=== PATIENT | female | born 1950 | race Caucasian/White ===

== ENCOUNTER 2021-02-11 12:17 | Inpatient (IN) | payer MEDICARE, OTHER, SELFPAY ==
--- NOTE | ~2021-02-11 | CT_ITS ---
EXAMINATION: CT abdomen pelvis w con DATE: 02/11/2021 14:10 INDICATION: Jaundice. Ascites. TECHNIQUE: Computed tomography (CT) of the abdomen and pelvis was performed with 100 cc Omnipaque 350 intravenous contrast. Automated exposure control and iterative reconstruction technique were employe d. Exam dose: 1379.95 mGy-cm total exam DLP. COMPARISON: 02/11/2021 right upper quadrant abdominal ultrasound examination is not currently availabl e FINDINGS: Cardiomegaly. Right atrial, right ventricular and coronary sinus leads are noted. No perica rdial or pleural effusion. The lung bases are clear of consolidation. Choledocholithiasis is noted at the distal common bile duct, with prominent intrahepatic and extrahep atic bile duct dilatation. There are multiple gallstones. There is gallbladder distention. No gallbla dder wall thickening or pericholecystic fluid or fat stranding is noted. No hepatic, splenic, pancreatic, adrenal or renal space-occupying mass lesion is detected. There is extensive calcification of the abdominal aorta and prominent calcification at the origin of the combined celiac and superior mesenteric artery, at the origins of the renal arteries. No abdomina l aortic aneurysm. No intraperitoneal or retroperitoneal or pelvic mass lesion or adenopathy or ascit es. There is a Arce catheter within the completely evacuated urinary bladder. No urinary tract calculus or hydroureteronephrosis. The uterus and adnexal areas are unremarkable. Normal appendix. There are numerous diverticula of the sigmoid colon; no CT evidence of diverticuliti s. No bowel obstruction, bowel wall thickening, pneumatosis or intraperitoneal free air is detected. Moderately prominent degenerative disc disease at L5-S1. Diffuse osteopenia. IMPRESSION: Choledocholithiasis with dilatation of the intrahepatic and extra hepatic bile ducts Cholelithiasis, distended gallbladder Diverticulosis of the colon; no CT evidence of diverticulitis Reviewed, dictated and finalized at [facility]. Reviewed, dictated and finalized at [facility].
--- NOTE | ~2021-02-11 | CT_ITS ---
EXAMINATION: CTA chest PE protocol DATE: 02/14/2021 13:24 INDICATION: Sepsis. Elevated d-dimer. TECHNIQUE: Computed tomography (CT) pulmonary angiogram of the chest was performed with 100 mL Omnipa que-350 intravenous contrast. Additional 3D reconstructions utilizing coronal maximum intensity proje ction (MIP) were performed. Automated exposure control and iterative reconstruction technique were em ployed. The dose-length product was 657.78 mGy-cm. COMPARISON: CT abdomen and pelvis dated 02/11/2021 FINDINGS: Excellent contrast opacification of the pulmonary arteries. There is moderate streak artifact from de nse contrast in the superior vena cava and right atrium. Moderate scattered respiratory motion artifa ct. Whether this decreases sensitivity in many of the subsegmental pulmonary arteries particularly at the lung bases. There is a small segmental region of decreased contrast enhancement along the caudal margin of a couple of the pulmonary arteries in the superior segment of the left lower lobe which ar e equivocal for pulmonary emboli versus volume averaging due to motion artifact. No other lesions moiz picious for pulmonary emboli identified. Mild dependent atelectasis in the bilateral lower lobes. Benjie cified left lower lobe nodule consistent with old granulomatous disease. No pneumonia, pulmonary pepe a, pleural effusion or pneumothorax. Cardiomegaly. Atherosclerotic coronary artery calcification. Thr ee lead pacemaker/AICD seen with lead tips at the right atrium, apex of the right ventricle and in a coronary vein overlying the anterior wall of the left ventricle having traversed the coronary sinus. No pericardial effusion. Mild right hilar and mediastinal lymphadenopathy which is likely reactive. T horacic aorta is normal in caliber with no dissection. There is enlargement of the central pulmonary arteries consistent with pulmonary arterial hypertension. Goiter with enlargement of the right thyroi d lobe. Peripherally calcified gallstones in the normal-appearing visualized portion of the gallbladd er. The common bile duct is dilated to 1.8 cm and there is intrahepatic biliary ductal dilation and/o r periportal edema in the liver. IMPRESSION: 1. Small filling defects versus volume averaging related to motion at a couple segmental pulmonary ar teries in the superior segment of the left lower lobe equivocal for pulmonary embolism. 2. Cardiomegaly and enlargement of the central pulmonary arteries consistent with pulmonary arterial hypertension. 3. Likely reactive mediastinal and right hilar lymphadenopathy. 4. Goiter. 5. Cholelithiasis with persistent intra and extra hepatic biliary ductal dilation which could be due to a previous noted gallstone at the distal common bile duct pain seen on earlier CT of the abdomen a nd pelvis. Reviewed, dictated and finalized at [facility]. IMPRESSION: 1. Small filling defects versus volume averaging related to motion at a couple segmental pulmonary arteries in the superior segment of the left lower lobe equ ivocal for pulmonary embolism. 2. Cardiomegaly and enlargement of the central pulmonary arteries consistent wi th pulmonary arterial hypertension. 3. Likely reactive mediastinal and right hilar lymphadenopathy. 4. Goiter. 5. Cholelithiasis with persistent intra and extra hepatic biliary ductal dilati on which could be due to a previous noted gallstone at the distal common bile d uct pain seen on earlier CT of the abdomen and pelvis.
--- NOTE | ~2021-02-11 | US_ITS ---
EXAMINATION: US right upper quadrant DATE: 02/11/2021 14:30 INDICATION: Jaundice and elevated liver function tests TECHNIQUE: Multiple grayscale and Doppler ultrasound images of the abdomen were obtained. COMPARISON: CT from today FINDINGS: The head, body, and tail of the pancreas are normal. There is intrahepatic biliary dilatati on. No surface nodularity. Normal hepatopetal flow in the main portal vein. The gallbladder is disten ded and contains multiple stones. There is mild wall thickening of the gallbladder. The dilated commo n bile duct measures 16 mm. There was no sonographic Molina sign. IMPRESSION: 1. Cholelithiasis. 2. Intrahepatic and extrahepatic biliary dilatation, consistent with choledocholithiasis identified o n earlier CT. Reviewed, dictated and finalized at [facility]. IMPRESSION: 1. Cholelithiasis. 2. Intrahepatic and extrahepatic biliary dilatation, consistent with choledocho lithiasis identified on earlier CT.
--- NOTE | ~2021-02-11 | US_ITS ---
EXAMINATION: US venous doppler LE EXAM DATE: 02/16/2021 09:39 INDICATION: Pulmonary embolism. TECHNIQUE: Multiple grayscale, color flow and Doppler images of the lower extremity deep venous syste ms bilaterally were obtained and reviewed. There is no prior study for comparison. FINDINGS: Right side: The right common femoral, femoral and profunda veins demonstrate normal color flow, respi ratory variation, augmentation and compressibility. Compressibility, color flow confirmed within the right popliteal, posterior tibial, peroneal, and greater saphenous veins. Left side: The left common femoral, femoral and profunda veins demonstrate normal color flow, respira tory variation, augmentation and compressibility. Compressibility, color flow confirmed within the l eft popliteal, posterior tibial, peroneal, and greater saphenous veins. IMPRESSION: No lower extremity deep venous thrombosis bilaterally. Reviewed, dictated and finalized at location [facility].
--- NOTE | ~2021-02-11 | XR_ITS ---
EXAMINATION: XR ERCP DATE: 02/15/2021 13:32 INDICATION: Choledocholithiasis. TECHNIQUE: 3 spot fluoroscopic images of the right upper quadrant were obtained during endoscopic ret rograde cholangiopancreatography (ERCP). Fluoroscopy exposure time was 136 seconds. COMPARISON: CT abdomen and pelvis 02/11/2021 FINDINGS: The endoscope is in the second portion of the duodenum. There is contrast opacification of the biliary tree. The common duct is dilated. There is a balloon in the common duct. IMPRESSION: 1. Dilated common duct. Please refer to the ERCP procedure note for additional details. Reviewed, dictated and finalized at [facility].
[2021-02-11 12:25] VITALS: BP 127/72; PULSE 77; RESP 26; TEMP 37.1; O2SAT 100
--- NOTE | 2021-02-11 13:21 | ED.GENADULT ---
HPI - General Adult General Chief complaint: Recheck/Abnormal Lab/Rx <Lois Ballesteros MD - Last Filed: 02/16/21 15:22> Stated complaint: ABN LABS <Lois Ballesteros MD - Last Filed: 02/16/21 15:22> Time Seen by Provider: 02/11/21 13:14 <Lois Ballesteros MD - Last Filed: 02/16/21 15:22> Source: family and EMS <Lois Ballesteros MD - Last Filed: 02/16/21 15:22> Mode of arrival: EMS <Lois Ballesteros MD - Last Filed: 02/16/21 15:22> Limitations: altered mental status <Lois Ballesteros MD - Last Filed: 02/16/21 15:22> History of Present Illness HPI narrative: 70-year-old female sent for sudden onset of jaundice and elevated LFTs. Per family 2 days ago she was not jaundiced and this is sudden onset. Patient does not have any complaints. According to the senior living she is altered mental status at this time, but states baseline. No abdominal pain, no fever. <Lois Ballesteros MD - Last Filed: 02/16/21 15:22> Onset (ago): day(s) (2) <Lois Ballesteros MD - Last Filed: 02/16/21 15:22> Related Data Home medications: Home Medications Medication Instructions Recorded Confirmed amlodipine 10 mg PO DAILY 02/11/21 02/12/21 atorvastatin 10 mg PO DAILY 02/11/21 02/12/21 carvedilol 25 mg PO BID 02/11/21 02/12/21 hydrochlorothiazide 25 mg PO DAILY 02/11/21 02/12/21 losartan 100 mg PO DAILY 02/11/21 02/12/21 potassium chloride 10 meq PO DAILY 02/11/21 02/12/21 warfarin 2.5 mg PO 2XW 02/11/21 02/12/21 omega-3 fatty acids 1,000 mg PO BID 02/12/21 02/12/21 <Lois Ballesteros MD - Last Filed: 02/16/21 15:22> Allergies/adverse reactions: Allergies Allergy/AdvReac Type Severity Reaction Status Date / Time lisinopril Allergy Unknown Rash Verified 02/15/21 11:04 <Lois Ballesteros MD - Last Filed: 02/16/21 15:22> Review of Systems Review of Systems: CONSTITUTIONAL: no fever, no weight loss, increased confusion <Lois Ballesteros MD - Last Filed: 02/16/21 15:22> ROS unobtainable: Yes unobtainable due to mental status <Lois Ballesteros MD - Last Filed: 02/16/21 15:22> [facility] Past Medical History Medical History: Medical History (Updated 02/16/21 @ 09:30 by LUC Sidhu) Atrial fibrillation CVA (cerebral vascular accident) (02/05/21) Dense left MCA stroke with CT suggestive of left M1 occlusion transferred to [facility] underwent mechanical thrombectomy Hyperlipidemia Hypertension Non-ischemic cardiomyopathy Tobacco abuse <Lois Ballesteros MD - Last Filed: 02/16/21 15:22> Surgical History Surgical History: Surgical History (Updated 02/15/21 @ 20:58 by Duglas Bruno MD) History of section ICD (implantable cardioverter-defibrillator) battery depletion <Lois Ballesteros MD - Last Filed: 02/16/21 15:22> Family History Family History: Family History Grandparent Cerebrovascular accident <Lois Ballesteros MD - Last Filed: 02/16/21 15:22> Social History Social History: Social History Social History: She lives with her of 54 years. They have 3 children. She is a homemaker. She has smoked as much as a pack of cigarettes per day since she was a teenager but recently cut down to half a pack of cigarettes per day. She denies any significant alcohol use history. Patient lives in a two-story home with her . can provide caregiver services. There are 3 steps to enter. Bedroom and bathroom are on the 2nd floor. Smoking packs per day: 0.5 Smoking cigarettes per day: 10.0 Years smoked: 52 Smoking pack-years: 26.00 Smoking status: Current every day smoker Additional smoking assessment comments: Placed in rehab so has not been smoking there for past month Alcohol intake: never Substance use: never Substance use type: does not use Spiritual car
[2021-02-11 13:56] LABS: Lipase 115 U/L (23-300); Magnesium 2.5 mg/dL (1.6-2.3)
[2021-02-11 13:56] LABS: Basophils Percent Auto 0.2 % (0.2-1.2); Hematocrit 28.8 % (37.0-47.0); Hemoglobin 9.6 g/dL (12.0-15.0); Immature Granulocyte Absolute 0.23 K/mm3 (0.00-0.031); Immature Granulocyte Percent A 1.6 % (0-0.5); Lymphocytes Absolute Auto 0.38 K/mm3 (0.9-3.2); Lymphocytes Percent Auto 2.7 % (18.3-44.2); Mean Corpuscular HGB Conc 33.3 g/dl (32-36); Mean Corpuscular Hemoglobin 32.8 pg (26-34); Mean Corpuscular Volume 98.3 fl (80-100); Monocytes Absolute Auto 0.9 K/mm3 (0.1-0.6); Monocytes Percent Auto 6.4 % (2.6-8.5); Neutrophils Absolute Auto 12.6 K/mm3 (1.3-6.7); Neutrophils Percent Auto 89.1 % (45.5-73.1); Nucleated Red Blood Cells Perc 0.2 % (0.0-0.2); Red Blood Count 2.93 M/mm3 (4.2-5.4); White Blood Count 14.1 K/mm3 (4.5-10.0)
[2021-02-11 13:59] LABS: INR 1.3; Prothrombin Time 15.7 Seconds (11.1-14.7)
[2021-02-11 14:00] LABS: Partial Thromboplastin Time 25.8 SECONDS (22.3-36.8)
[2021-02-11 14:09] LABS: Troponin I 0.017 ng/mL (0.000-0.034)
[2021-02-11 15:18] LABS: Platelet Clumps Present; Platelet Estimate Adequate (Adequate)
[2021-02-11 17:05] VITALS: BP 124/69; PULSE 75; RESP 22; TEMP 37; O2SAT 100
[2021-02-11] MEDS: AMPICILLIN SULB 3 GM/NS 100 ML 3 GM/100 ML VIAL IVPB (17:05)
[2021-02-11 19:15] VITALS: BP 115/64; PULSE 72; RESP 16; O2SAT 92
[2021-02-11 20:01] VITALS: BP 119/65; PULSE 75; RESP 19; O2SAT 100
[2021-02-11 21:29] VITALS: BP 116/84; PULSE 75; RESP 21; O2SAT 100
[2021-02-12] VITALS (10 sets, daily range): BP systolic 118–148; BP diastolic 63–86; PULSE 75–77; RESP 17–20; TEMP 35.9–36.1; O2SAT 96–100; BMI 34.7
[2021-02-12] MEDS: AMPICILLIN SULB 3 GM/NS 100 ML 3 GM/100 ML VIAL IVPB ×5 (00:12→23:33)
[2021-02-12] MEDS: SODIUM CHLORIDE 0.9% IV 1,000 ML 999 ML IV CONT (01:29)
[2021-02-12 01:46] LABS: Lactic Acid Reflex 0.8 mmol/L (0.7-2.1)
[2021-02-12 02:24] LABS: Basophils Percent Auto 0.2 % (0.2-1.2); Eosinophils Absolute Auto 0.1 K/mm3 (0-0.3); Eosinophils Percent Auto 0.7 % (0-4.4); Hematocrit 26.8 % (37.0-47.0); Hemoglobin 8.9 g/dL (12.0-15.0); Immature Granulocyte Absolute 0.09 K/mm3 (0.00-0.031); Immature Granulocyte Percent A 0.9 % (0-0.5); Lymphocytes Absolute Auto 0.65 K/mm3 (0.9-3.2); Lymphocytes Percent Auto 6.4 % (18.3-44.2); Mean Corpuscular HGB Conc 33.2 g/dl (32-36); Mean Corpuscular Hemoglobin 32.7 pg (26-34); Mean Corpuscular Volume 98.5 fl (80-100); Mean Platelet Volume 10.9 fl (7.4-10.4); Monocytes Absolute Auto 1.2 K/mm3 (0.1-0.6); Monocytes Percent Auto 11.8 % (2.6-8.5); Neutrophils Absolute Auto 8.1 K/mm3 (1.3-6.7); Nucleated Red Blood Cells Perc 0.3 % (0.0-0.2); Platelet Count Result 155 k/mm3 (150-375); Red Blood Count 2.72 M/mm3 (4.2-5.4); Red Cell Distribution Width 13.1 % (11.5-14.5); White Blood Count 10.1 K/mm3 (4.5-10.0)
[2021-02-12 02:39] LABS: Alanine Aminotransferase 281 U/L (4-35); Albumin Level 3.6 g/dL (3.5-5.1); Alkaline Phosphatase 262 U/L (38-126); Anion Gap 8 mmol/L (8-16); Aspartate Amino Transferase 155 U/L (14-36); Bilirubin,Total 6.6 mg/dL (0.2-1.3); Blood Urea Nitrogen 31 mg/dL (7-17); Calcium 8.5 mg/dL (8.4-10.2); Carbon Dioxide 23 mmol/L (22-30); Chloride 107 mmol/L (98-107); Estimated CRCL calculation 44 ml/min; Estimated Glomerular Filt Rate 40; Glucose 173 mg/dL (65-110); Lipase 98 U/L (23-300); Potassium 3.3 mmol/L (3.4-5.0); Sodium 138 mmol/L (137-145)
[2021-02-12] MEDS: SODIUM CHLORIDE 0.9% IV 1,000 ML 150 ML IV CONT (04:54)
--- NOTE | 2021-02-12 05:53 | PM.IMHP ---
H&P: HPI History of Present Illness Date/Time: 02/12/21 05:53 Chief Complaint: Jaundice and confusion Narrative: 70-year-old female with past medical history of recent CVA status post thrombectomy, hypertension, hyperlipidemia, nonischemic cardiomyopathy and atrial fibrillation who presented to the ER from acute inpatient rehab via EMS after her morning labs demonstrated elevated bilirubin, transaminases and leukocytosis. The acute rehab staff had no the patient was jaundice and seemed confused. Labs at acute rehab [place] [address], chronic stable anemia hemoglobin 9.2, sodium 135 potassium 3.8, CO2 20, BUN 31, creatinine 1.3 up from prior value of 0.8, bilirubin 6.5, AST 229 ALT 365 alk-phos 317. She was alert oriented to person but was unable to give me her last name. She could not name the town or the name the hospital. She was under the impression that she was going back to the rehab facility later today. Rib she was oriented to the month and year. She was unable to provide any true history regarding her recent CVA for past medical history. She seemed intermittently confused. She did have some expressive aphasia but also was providing inappropriate responses that were not due to word finding. She denies having any abdominal pain but seemed to have some mild guarding on exam. On exam patient was markedly jaundice. She denies any nausea or vomiting. She reports that she does not recall when she last had a bowel movement. She denies any difficulty urinating. However the patient had a Arce catheter present at the time of my evaluation. She told the nursing staff that she told me that she had the Arce catheter at the rehab facility but she told nursing staff that the with complete at this hospital. She denies having any fevers or chills. However it known that she had a temperature of a 102.9? around 8:00 a.m. on the 8 at acute inpatient rehab. The patient was noted to be wheezing on exam. The patient denies a history of COPD and denies any shortness of breath. She has nasal cannula in place but no documented history of hypoxia. She evidently had some increased work of breathing in the ER. At the time of my evaluation she did have some mild tachypnea during conversation but this resolved when she would pause. She does continue to smoke daily. She started smoking as a teenager and smoked about a pack of cigarettes per day. She denies any chest pain or palpitations. The patient has obvious right facial droop and expressive aphasia. She seems to have some difficulty with coordination of her rate hand. She states that she has not been walking since her stroke. The patient is a fair to poor historian. Review of Systems Review of Systems: 12 systems were reviewed with pertinent positives and negatives per HPI. Except as documented in the HPI, all other systems were reviewed and are negative., however limited as the patient had intermittent confusion. [facility] Past Medical History Medical History (Updated 02/12/21 @ 15:40 by LUC Sidhu) Atrial fibrillation CVA (cerebral vascular accident) (02/05/21) Dense left MCA stroke with CT suggestive of left M1 occlusion transferred to [facility] underwent mechanical thrombectomy Hyperlipidemia Hypertension Non-ischemic cardiomyopathy Tobacco abuse Surgical History Surgical History ICD (implantable cardioverter-defibrillator) battery depletion Family History Family History Grandparent Cerebrovascular accident Social History Social History (Updated 02/12/21 @ 08:09 by Laura Alas DO) Social History: She lives with her of 54 years. They have 3 children. She is a homemaker. She has smoked as much as a pack of cigarettes per day since she was a teenager but recently cut down to half a pack of cigarettes per day. She denie
--- NOTE | 2021-02-12 05:54 | ADMGEN ---
This patient, Brooklyn Morocho, was admitted to 2 Medical Room 258-01@ 05. Patient/family oriented to hospital policies and general routines including ID bracelet, bed and alarms, visiting hours, pain management, procedures, bathroom and other care routines, personal items, smoking policy, room service/diet, and visiting hours. Information on how to activate the Rapid Response Team has been discussed. Patient/Family are encouraged to report perceived risks to care and to ask questions if they do not understand what they are told or what they should do.
[2021-02-12] MEDS: SODIUM CHLORIDE 0.9% IV 1,000 ML 125 ML IV CONT ×2 (06:41→17:52)
[2021-02-12 07:39] LABS: Ammonia < 9 umol/L (9-30); INR 1.2; Prothrombin Time 15.4 Seconds (11.1-14.7)
[2021-02-12 07:40] LABS: Partial Thromboplastin Time 27.4 SECONDS (22.3-36.8)
[2021-02-12] MEDS: HEPARIN SODIUM 5,000 UNITS/ML VIAL 8500 UNITS IV PUSH (08:19)
[2021-02-12] MEDS: HEPARIN SOD/D5W 100 UNITS/ML 25,000 UNITS/250 ML BAG 15 UNITS IV CONT (08:20)
--- NOTE | 2021-02-12 09:00 | P.PNIM_ITS ---
Progress Note: A&P Assessment and Plan (1) Severe sepsis with acute organ dysfunction: Code(s): A41.9 - Sepsis, unspecified organism; R65.20 - Severe sepsis without septic shock Status: Acute Assessment and Plan: * patient met severe sepsis criteria on presentation with leukocytosis, fever of 102.9, acute kidney injury, tachypnea, metabolic encephalopathy, hyperbilirubinemia and transaminitis. * Source of infection: Choledocholithiasis with ascending cholangitis. * White blood cell count 14.1 upon admission down to 10.1 today * Lactic acid 0.8 * AST/ALT 155/281, alk-phos 262 * Right upper quadrant ultrasound: cholelithiasis, intrahepatic and extrahepatic biliary dilatation * Abdominal pelvis CT: Choledocholithiasis with dilatation intrahepatic and extrahepatic bile duct distended gallbladder * GI has been consulted however is not able to perform an ERCP * Patient will need be transferred and has been accepted at [facility] * Unasyn 3 g q.6 scheduled * Received 1 unit of normal saline in the ED * Continuous hydration of 125 mils an hour * Trend labs * DVT prophylaxis heparin drip (2) Ascending cholangitis: Code(s): K83.09 - Other cholangitis Status: Acute Assessment and Plan: * Right upper quadrant ultrasound: cholelithiasis, intrahepatic and extrahepatic biliary dilatation * Abdominal pelvis CT: Choledocholithiasis with dilatation intrahepatic and extrahepatic bile duct distended gallbladder * Patient needs an ERCP * Accepted to [facility] * NPO except for ice chips * See above (3) Metabolic encephalopathy: Code(s): G93.41 - Metabolic encephalopathy Status: Acute Assessment and Plan: * Acute metabolic encephalopathy * Could related to sepsis and disease process or hepatic * Ammonia less than 9 * Continue to monitor (4) Choledocholithiasis: Code(s): K80.50 - Calculus of bile duct without cholangitis or cholecystitis without obstruction Status: Acute Assessment and Plan: * Right upper quadrant ultrasound: cholelithiasis, intrahepatic and extrahepatic biliary dilatation * Abdominal pelvis CT: Choledocholithiasis with dilatation intrahepatic and extrahepatic bile duct distended gallbladder * See above (5) Transaminitis: Code(s): R74.01 - Elevation of levels of liver transaminase levels Status: Acute Assessment and Plan: * AST/ALT 229/365, alk-phos 317 on admission * AST/ALT 155/281 * Alk phos 262 * Right upper quadrant ultrasound: cholelithiasis, intrahepatic and extrahepatic biliary dilatation * Trend labs (6) Hyperbilirubinemia: Code(s): E80.6 - Other disorders of bilirubin metabolism Status: Acute Assessment and Plan: * Total bilirubin 6.5 upon admission * Trending up to 6.6 this morning * Continue trend (7) Recent cerebrovascular accident (CVA): Code(s): Z86.73 - Personal history of transient ischemic attack (TIA), and cerebral infarction without residual deficits Status: Acute Assessment and Plan: * History of a CVA * Patient was in rehab * Patient is on warfarin at home * PT INR 15.4/1.2, APTT 27.4 * Heparin drip titrate to protocol * Trend labs (8) Acute kidney failure: Code(s): N17.9 - Acute kidney failure, unspecified Status: Acute Assessment and Plan: * BUN/CR 31.30 currently * Strict I&O * Arce catheter
--- NOTE | 2021-02-12 09:00 | PM.IMPN ---
Progress Note: A&P Assessment and Plan (1) Severe sepsis with acute organ dysfunction: Code(s): A41.9 - Sepsis, unspecified organism; R65.20 - Severe sepsis without septic shock Status: Acute Assessment and Plan: patient met severe sepsis criteria on presentation with leukocytosis, fever of 102.9, acute kidney injury, tachypnea, metabolic encephalopathy, hyperbilirubinemia and transaminitis. Source of infection: Choledocholithiasis with ascending cholangitis. White blood cell count 14.1 upon admission down to 10.1 today Lactic acid 0.8 AST/ALT 155/281, alk-phos 262 Right upper quadrant ultrasound: cholelithiasis, intrahepatic and extrahepatic biliary dilatation Abdominal pelvis CT: Choledocholithiasis with dilatation intrahepatic and extrahepatic bile duct distended gallbladder GI has been consulted however is not able to perform an ERCP Patient will need be transferred and has been accepted at [facility] Unasyn 3 g q.6 scheduled Received 1 unit of normal saline in the ED Continuous hydration of 125 mils an hour Trend labs DVT prophylaxis heparin drip (2) Ascending cholangitis: Code(s): K83.09 - Other cholangitis Status: Acute Assessment and Plan: Right upper quadrant ultrasound: cholelithiasis, intrahepatic and extrahepatic biliary dilatation Abdominal pelvis CT: Choledocholithiasis with dilatation intrahepatic and extrahepatic bile duct distended gallbladder Patient needs an ERCP Accepted to [facility] NPO except for ice chips See above (3) Metabolic encephalopathy: Code(s): G93.41 - Metabolic encephalopathy Status: Acute Assessment and Plan: Acute metabolic encephalopathy Could related to sepsis and disease process or hepatic Ammonia less than 9 Continue to monitor (4) Choledocholithiasis: Code(s): K80.50 - Calculus of bile duct without cholangitis or cholecystitis without obstruction Status: Acute Assessment and Plan: Right upper quadrant ultrasound: cholelithiasis, intrahepatic and extrahepatic biliary dilatation Abdominal pelvis CT: Choledocholithiasis with dilatation intrahepatic and extrahepatic bile duct distended gallbladder See above (5) Transaminitis: Code(s): R74.01 - Elevation of levels of liver transaminase levels Status: Acute Assessment and Plan: AST/ALT 229/365, alk-phos 317 on admission AST/ALT 155/281 Alk phos 262 Right upper quadrant ultrasound: cholelithiasis, intrahepatic and extrahepatic biliary dilatation Trend labs (6) Hyperbilirubinemia: Code(s): E80.6 - Other disorders of bilirubin metabolism Status: Acute Assessment and Plan: Total bilirubin 6.5 upon admission Trending up to 6.6 this morning Continue trend (7) Recent cerebrovascular accident (CVA): Code(s): Z86.73 - Personal history of transient ischemic attack (TIA), and cerebral infarction without residual deficits Status: Acute Assessment and Plan: History of a CVA Patient was in rehab Patient is on warfarin at home PT INR 15.4/1.2, APTT 27.4 Heparin drip titrate to protocol Trend labs (8) Acute kidney failure: Code(s): N17.9 - Acute kidney failure, unspecified Status: Acute Assessment and Plan: BUN/CR 31/1.30 currently Strict I&O Arce catheter Trend labs (9) Hypokalemia: Code(s): E87.6 - Hypokalemia Status: Acute Assessment and Plan: K 3.3 hypokalemic on repeat labs 40 mEq potassium chloride rider trend labs Time Spent With Patient Time with patient: 25 - 35 minutes Subjective Date/time seen: 02/12/21 0900 Interval history: Date of Service 02/12/21 from H&P 70-year-old female with past medical history of recent CVA status post thrombectomy, hypertension, hyperlipidemia, nonischemic cardiomyopathy and atrial fibrillation who presented to
[2021-02-12 15:02] LABS: Partial Thromboplastin Time 157.3 SECONDS (22.3-36.8)
[2021-02-12] MEDS: ONDANSETRON INJ 4 MG/2 ML VIAL IV PUSH (19:44)
[2021-02-12 21:38] LABS: Partial Thromboplastin Time 107.8 SECONDS (22.3-36.8)
[2021-02-13] VITALS (7 sets, daily range): BP systolic 147–148; BP diastolic 79–88; PULSE 74–78; RESP 17–22; TEMP 35.9–37.4; O2SAT 94–100
[2021-02-13] MEDS: SODIUM CHLORIDE 0.9% IV 1,000 ML 125 ML IV CONT (02:57)
[2021-02-13] MEDS: HEPARIN SOD/D5W 100 UNITS/ML 25,000 UNITS/250 ML BAG 11 UNITS IV CONT (05:09)
[2021-02-13] MEDS: AMPICILLIN SULB 3 GM/NS 100 ML 3 GM/100 ML VIAL IVPB ×4 (05:10→23:51)
[2021-02-13 05:41] LABS: Basophils Percent Auto 0.4 % (0.2-1.2); Eosinophils Absolute Auto 0.5 K/mm3 (0-0.3); Eosinophils Percent Auto 6.5 % (0-4.4); Hematocrit 25.7 % (37.0-47.0); Hemoglobin 8.3 g/dL (12.0-15.0); Immature Granulocyte Absolute 0.09 K/mm3 (0.00-0.031); Immature Granulocyte Percent A 1.3 % (0-0.5); Lymphocytes Absolute Auto 0.91 K/mm3 (0.9-3.2); Lymphocytes Percent Auto 12.8 % (18.3-44.2); Mean Corpuscular HGB Conc 32.3 g/dl (32-36); Mean Corpuscular Hemoglobin 31.8 pg (26-34); Mean Corpuscular Volume 98.5 fl (80-100); Monocytes Percent Auto 13.7 % (2.6-8.5); Neutrophils Absolute Auto 4.7 K/mm3 (1.3-6.7); Neutrophils Percent Auto 65.3 % (45.5-73.1); Nucleated Red Blood Cells Perc 0.6 % (0.0-0.2); Red Blood Count 2.61 M/mm3 (4.2-5.4); Red Cell Distribution Width 13.1 % (11.5-14.5); White Blood Count 7.1 K/mm3 (4.5-10.0)
[2021-02-13 05:57] LABS: Alanine Aminotransferase 220 U/L (4-35); Albumin Level 3.1 g/dL (3.5-5.1); Alkaline Phosphatase 267 U/L (38-126); Anion Gap 5 mmol/L (8-16); Aspartate Amino Transferase 97 U/L (14-36); Blood Urea Nitrogen 18 mg/dL (7-17); Calcium 8.2 mg/dL (8.4-10.2); Carbon Dioxide 23 mmol/L (22-30); Chloride 113 mmol/L (98-107); Estimated CRCL calculation 64 ml/min; Estimated Glomerular Filt Rate > 60; Glucose 97 mg/dL (65-110); Magnesium 2.7 mg/dL (1.6-2.3); Potassium 3.9 mmol/L (3.4-5.0); Sodium 141 mmol/L (137-145)
--- NOTE | 2021-02-13 07:49 | P.PNIM_ITS ---
Progress Note: A&P Assessment and Plan (1) Severe sepsis with acute organ dysfunction: Code(s): A41.9 - Sepsis, unspecified organism; R65.20 - Severe sepsis without septic shock Status: Acute Assessment and Plan: * patient met severe sepsis criteria on presentation with leukocytosis, fever of 102.9, acute kidney injury, tachypnea, metabolic encephalopathy, hyperbilirubinemia and transaminitis. * Source of infection: Choledocholithiasis with ascending cholangitis. * White blood cell count 14.1 upon admission down to 7.1 today * Lactic acid 0.8 * Blood cultures: NGTD * AST/ALT 97/220, alk-phos 267 * Right upper quadrant ultrasound: cholelithiasis, intrahepatic and extrahepatic biliary dilatation * Abdominal pelvis CT: Choledocholithiasis with dilatation intrahepatic and extrahepatic bile duct distended gallbladder * GI has been consulted however is not able to perform an ERCP, if patient is here on Sunday, I think that Dr. Hya can be consulted for the ERCP * Patient will need be transferred and [facility], unless she is still here on Sunday, then pretty sure we should be able to handle this case * Unasyn 3 g q.6 scheduled * Received 1 unit of normal saline in the ED * Continuous hydration of 125 mils an hour * Trend labs * DVT prophylaxis heparin drip (2) Ascending cholangitis: Code(s): K83.09 - Other cholangitis Status: Acute Assessment and Plan: * Right upper quadrant ultrasound: cholelithiasis, intrahepatic and extrahepatic biliary dilatation * Abdominal pelvis CT: Choledocholithiasis with dilatation intrahepatic and extrahepatic bile duct distended gallbladder * Patient needs an ERCP * Accepted to [facility] * Will upgrade to clear liquids * See above (3) Choledocholithiasis: Code(s): K80.50 - Calculus of bile duct without cholangitis or cholecystitis without obstruction Status: Acute Assessment and Plan: * Right upper quadrant ultrasound: cholelithiasis, intrahepatic and extrahepatic biliary dilatation * Abdominal pelvis CT: Choledocholithiasis with dilatation intrahepatic and extrahepatic bile duct distended gallbladder * See above (4) Metabolic encephalopathy: Code(s): G93.41 - Metabolic encephalopathy Status: Acute Assessment and Plan: * Patient seems to be at her baseline * Acute metabolic encephalopathy * Could related to sepsis and disease process or hepatic * Might even have something to do with her recent stroke that she obtained to the frontal lobe * She seems to be at her baseline * Ammonia less than 9 * Continue to monitor (5) Transaminitis: Code(s): R74.01 - Elevation of levels of liver transaminase levels Status: Acute Assessment and Plan: * AST/ALT 229/365, alk-phos 317 on admission * AST/ALT 97/220, trending down * Alk phos 267 trending up * Jaundice upon examination * Right upper quadrant ultrasound: cholelithiasis, intrahepatic and extrahepatic biliary dilatation * Trend labs (6) Hyperbilirubinemia: Code(s): E80.6 - Other disorders of bilirubin metabolism Status: Acute Assessment and Plan: * Total bilirubin 6.5 upon admission * Down this morning to 3.0 * Cannot do MRCP due to patient having a pacemaker * Continue trend (7) Recent cerebrovascular accident (CVA): Code(s): Z86.73 - Personal history of transient ischemic attack (TIA), and cerebral infarction without r
--- NOTE | 2021-02-13 07:49 | PM.IMPN ---
Progress Note: A&P Assessment and Plan (1) Severe sepsis with acute organ dysfunction: Code(s): A41.9 - Sepsis, unspecified organism; R65.20 - Severe sepsis without septic shock Status: Acute Assessment and Plan: patient met severe sepsis criteria on presentation with leukocytosis, fever of 102.9, acute kidney injury, tachypnea, metabolic encephalopathy, hyperbilirubinemia and transaminitis. Source of infection: Choledocholithiasis with ascending cholangitis. White blood cell count 14.1 upon admission down to 7.1 today Lactic acid 0.8 Blood cultures: NGTD AST/ALT 97/220, alk-phos 267 Right upper quadrant ultrasound: cholelithiasis, intrahepatic and extrahepatic biliary dilatation Abdominal pelvis CT: Choledocholithiasis with dilatation intrahepatic and extrahepatic bile duct distended gallbladder GI has been consulted however is not able to perform an ERCP, if patient is here on Sunday, I think that Dr. Hay can be consulted for the ERCP Patient will need be transferred and has been accepted at [facility], unless she is still here on Sunday, then pretty sure we should be able to handle this case Unasyn 3 g q.6 scheduled Received 1 unit of normal saline in the ED Continuous hydration of 125 mils an hour Trend labs DVT prophylaxis heparin drip (2) Ascending cholangitis: Code(s): K83.09 - Other cholangitis Status: Acute Assessment and Plan: Right upper quadrant ultrasound: cholelithiasis, intrahepatic and extrahepatic biliary dilatation Abdominal pelvis CT: Choledocholithiasis with dilatation intrahepatic and extrahepatic bile duct distended gallbladder Patient needs an ERCP Accepted to [facility] Will upgrade to clear liquids See above (3) Choledocholithiasis: Code(s): K80.50 - Calculus of bile duct without cholangitis or cholecystitis without obstruction Status: Acute Assessment and Plan: Right upper quadrant ultrasound: cholelithiasis, intrahepatic and extrahepatic biliary dilatation Abdominal pelvis CT: Choledocholithiasis with dilatation intrahepatic and extrahepatic bile duct distended gallbladder See above (4) Metabolic encephalopathy: Code(s): G93.41 - Metabolic encephalopathy Status: Acute Assessment and Plan: Patient seems to be at her baseline Acute metabolic encephalopathy Could related to sepsis and disease process or hepatic Might even have something to do with her recent stroke that she obtained to the frontal lobe She seems to be at her baseline Ammonia less than 9 Continue to monitor (5) Transaminitis: Code(s): R74.01 - Elevation of levels of liver transaminase levels Status: Acute Assessment and Plan: AST/ALT 229/365, alk-phos 317 on admission AST/ALT 97/220, trending down Alk phos 267 trending up Jaundice upon examination Right upper quadrant ultrasound: cholelithiasis, intrahepatic and extrahepatic biliary dilatation Trend labs (6) Hyperbilirubinemia: Code(s): E80.6 - Other disorders of bilirubin metabolism Status: Acute Assessment and Plan: Total bilirubin 6.5 upon admission Down this morning to 3.0 Cannot do MRCP due to patient having a pacemaker Continue trend (7) Recent cerebrovascular accident (CVA): Code(s): Z86.73 - Personal history of transient ischemic attack (TIA), and cerebral infarction without residual deficits Status: Acute Assessment and Plan: History of a CVA Patient was in rehab Patient is on warfarin at home PT INR 15.4/1.2, APTT trending down 66.8 Heparin drip titrate to protocol Trend labs PT and OT Time Spent With Patient Time with patient: Greater than 35 minutes Subjective Date/time seen: 02/13/21 07:49 Interval history: Date of Service 02/12/21 from H&P 70-year-old female with past medical history of recent CVA status post thrombectomy, hypertension, hyp
[2021-02-13 08:02] LABS: Partial Thromboplastin Time 66.8 SECONDS (22.3-36.8)
[2021-02-13] MEDS: HEPARIN SODIUM 5,000 UNITS/ML VIAL 3500 UNITS IV PUSH (08:09)
[2021-02-13] MEDS: BUMETANIDE INJ 1 MG/4 ML VIAL IV PUSH (12:16)
[2021-02-13 14:29] LABS: Partial Thromboplastin Time 122.6 SECONDS (22.3-36.8)
[2021-02-13 20:50] LABS: Partial Thromboplastin Time 74.3 SECONDS (22.3-36.8)
[2021-02-14] MEDS: HEPARIN SOD/D5W 100 UNITS/ML 25,000 UNITS/250 ML BAG 11 UNITS IV CONT (02:07)
[2021-02-14 03:00] LABS: Partial Thromboplastin Time 74.2 SECONDS (22.3-36.8)
[2021-02-14 04:30] VITALS: BP 142/73; PULSE 75; RESP 18; TEMP 36.4; O2SAT 95
[2021-02-14] MEDS: AMPICILLIN SULB 3 GM/NS 100 ML 3 GM/100 ML VIAL IVPB ×4 (05:24→23:47)
[2021-02-14 06:37] LABS: Alanine Aminotransferase 182 U/L (4-35); Albumin Level 3.2 g/dL (3.5-5.1); Alkaline Phosphatase 327 U/L (38-126); Anion Gap 6 mmol/L (8-16); Aspartate Amino Transferase 73 U/L (14-36); Bilirubin,Total 2.3 mg/dL (0.2-1.3); Blood Urea Nitrogen 13 mg/dL (7-17); Calcium 8.3 mg/dL (8.4-10.2); Carbon Dioxide 26 mmol/L (22-30); Chloride 106 mmol/L (98-107); Estimated CRCL calculation 64 ml/min; Estimated Glomerular Filt Rate > 60; Glucose 114 mg/dL (65-110); Magnesium 2.2 mg/dL (1.6-2.3); Potassium 3.3 mmol/L (3.4-5.0); Sodium 138 mmol/L (137-145)
[2021-02-14 06:50] LABS: Basophils Percent Auto 0.5 % (0.2-1.2); Eosinophils Absolute Auto 0.4 K/mm3 (0-0.3); Eosinophils Percent Auto 6.8 % (0-4.4); Hematocrit 25.8 % (37.0-47.0); Hemoglobin 8.6 g/dL (12.0-15.0); Immature Granulocyte Absolute 0.15 K/mm3 (0.00-0.031); Immature Granulocyte Percent A 2.4 % (0-0.5); Lymphocytes Absolute Auto 1.09 K/mm3 (0.9-3.2); Lymphocytes Percent Auto 17.2 % (18.3-44.2); Mean Corpuscular HGB Conc 33.3 g/dl (32-36); Mean Corpuscular Hemoglobin 32.5 pg (26-34); Mean Corpuscular Volume 97.4 fl (80-100); Mean Platelet Volume 12.8 fl (7.4-10.4); Monocytes Absolute Auto 0.9 K/mm3 (0.1-0.6); Monocytes Percent Auto 14.7 % (2.6-8.5); Neutrophils Absolute Auto 3.7 K/mm3 (1.3-6.7); Neutrophils Percent Auto 58.4 % (45.5-73.1); Nucleated Red Blood Cells Absolute Auto 0.1 K/mm3 (0.0-0.012); Nucleated Red Blood Cells Perc 0.8 % (0.0-0.2); Platelet Count Result 76 k/mm3 (150-375); Red Blood Count 2.65 M/mm3 (4.2-5.4); Red Cell Distribution Width 13.1 % (11.5-14.5); White Blood Count 6.3 K/mm3 (4.5-10.0)
[2021-02-14 08:22] VITALS: RESP 18; O2SAT 96
--- NOTE | 2021-02-14 11:09 | P.PNIM_ITS ---
Progress Note: A&P Assessment and Plan (1) Severe sepsis with acute organ dysfunction: Code(s): A41.9 - Sepsis, unspecified organism; R65.20 - Severe sepsis without septic shock Status: Acute Assessment and Plan: * patient met severe sepsis criteria on presentation with leukocytosis, fever of 102.9, acute kidney injury, tachypnea, metabolic encephalopathy, hyperbilirubinemia and transaminitis. * Source of infection: Choledocholithiasis with ascending cholangitis. * White blood cell count 14.1 upon admission down to 6.3 today * Lactic acid 0.8 * Blood cultures: NGTD * AST/ALT 73/182, alk-phos 327 * Right upper quadrant ultrasound: cholelithiasis, intrahepatic and extrahepatic biliary dilatation * Abdominal pelvis CT: Choledocholithiasis with dilatation intrahepatic and extrahepatic bile duct distended gallbladder * GI has been consulted and is planning an ERCP tomorrow unless patient gets transferred first * Patient will need be transferred and has been accepted [facility] * Unasyn 3 g q.6 scheduled * Received 1 unit of normal saline in the ED * Trend labs * DVT prophylaxis SCDs (2) Ascending cholangitis: Code(s): K83.09 - Other cholangitis Status: Acute Assessment and Plan: * Right upper quadrant ultrasound: cholelithiasis, intrahepatic and extrahepatic biliary dilatation * Abdominal pelvis CT: Choledocholithiasis with dilatation intrahepatic and extrahepatic bile duct distended gallbladder * Patient needs an ERCP, tentatively scheduled for tomorrow with Dr. Hay * Accepted to [facility] * NPO after MN * See above (3) Choledocholithiasis: Code(s): K80.50 - Calculus of bile duct without cholangitis or cholecystitis without obstruction Status: Acute Assessment and Plan: * Right upper quadrant ultrasound: cholelithiasis, intrahepatic and extrahepatic biliary dilatation * Abdominal pelvis CT: Choledocholithiasis with dilatation intrahepatic and extrahepatic bile duct distended gallbladder * See above (4) Metabolic encephalopathy: Code(s): G93.41 - Metabolic encephalopathy Status: Acute Assessment and Plan: * Patient seems to be at her baseline * Acute metabolic encephalopathy * Could related to sepsis and disease process or hepatic * Might even have something to do with her recent stroke that she obtained to the frontal lobe * She seems to be at her baseline * Ammonia less than 9 * Continue to monitor (5) Transaminitis: Code(s): R74.01 - Elevation of levels of liver transaminase levels Status: Acute Assessment and Plan: * AST/ALT 229/365, alk-phos 317 on admission * AST/ALT 73/182, trending down * Alk phos 327 trending up * Jaundice seems to be resolved at this time * Right upper quadrant ultrasound: cholelithiasis, intrahepatic and extrahepatic biliary dilatation * Trend labs (6) Elevated LFTs: Code(s): R79.89 - Other specified abnormal findings of blood chemistry Status: Acute Assessment and Plan: * See above (7) Hyperbilirubinemia: Code(s): E80.6 - Other disorders of bilirubin metabolism Status: Acute Assessment and Plan: * Total bilirubin 6.5 upon admission * Down this morning to 2.6 * Cannot do MRCP due to patient having a pacemaker * ERCP scheduled for tomorrow * Continue trend (8) Recent cerebrovascular accident (CVA): Code(s): Z86.73 - Personal history of tr
--- NOTE | 2021-02-14 11:09 | PM.IMPN ---
Progress Note: A&P Assessment and Plan (1) Severe sepsis with acute organ dysfunction: Code(s): A41.9 - Sepsis, unspecified organism; R65.20 - Severe sepsis without septic shock Status: Acute Assessment and Plan: patient met severe sepsis criteria on presentation with leukocytosis, fever of 102.9, acute kidney injury, tachypnea, metabolic encephalopathy, hyperbilirubinemia and transaminitis. Source of infection: Choledocholithiasis with ascending cholangitis. White blood cell count 14.1 upon admission down to 6.3 today Lactic acid 0.8 Blood cultures: NGTD AST/ALT 73/182, alk-phos 327 Right upper quadrant ultrasound: cholelithiasis, intrahepatic and extrahepatic biliary dilatation Abdominal pelvis CT: Choledocholithiasis with dilatation intrahepatic and extrahepatic bile duct distended gallbladder GI has been consulted and is planning an ERCP tomorrow unless patient gets transferred first Patient will need be transferred and has been accepted at [facility] Unasyn 3 g q.6 scheduled Received 1 unit of normal saline in the ED Trend labs DVT prophylaxis SCDs (2) Ascending cholangitis: Code(s): K83.09 - Other cholangitis Status: Acute Assessment and Plan: Right upper quadrant ultrasound: cholelithiasis, intrahepatic and extrahepatic biliary dilatation Abdominal pelvis CT: Choledocholithiasis with dilatation intrahepatic and extrahepatic bile duct distended gallbladder Patient needs an ERCP, tentatively scheduled for tomorrow with Dr. Hay Accepted to [facility] NPO after MN See above (3) Choledocholithiasis: Code(s): K80.50 - Calculus of bile duct without cholangitis or cholecystitis without obstruction Status: Acute Assessment and Plan: Right upper quadrant ultrasound: cholelithiasis, intrahepatic and extrahepatic biliary dilatation Abdominal pelvis CT: Choledocholithiasis with dilatation intrahepatic and extrahepatic bile duct distended gallbladder See above (4) Metabolic encephalopathy: Code(s): G93.41 - Metabolic encephalopathy Status: Acute Assessment and Plan: Patient seems to be at her baseline Acute metabolic encephalopathy Could related to sepsis and disease process or hepatic Might even have something to do with her recent stroke that she obtained to the frontal lobe She seems to be at her baseline Ammonia less than 9 Continue to monitor (5) Transaminitis: Code(s): R74.01 - Elevation of levels of liver transaminase levels Status: Acute Assessment and Plan: AST/ALT 229/365, alk-phos 317 on admission AST/ALT 73/182, trending down Alk phos 327 trending up Jaundice seems to be resolved at this time Right upper quadrant ultrasound: cholelithiasis, intrahepatic and extrahepatic biliary dilatation Trend labs (6) Elevated LFTs: Code(s): R79.89 - Other specified abnormal findings of blood chemistry Status: Acute Assessment and Plan: See above (7) Hyperbilirubinemia: Code(s): E80.6 - Other disorders of bilirubin metabolism Status: Acute Assessment and Plan: Total bilirubin 6.5 upon admission Down this morning to 2.6 Cannot do MRCP due to patient having a pacemaker ERCP scheduled for tomorrow Continue trend (8) Recent cerebrovascular accident (CVA): Code(s): Z86.73 - Personal history of transient ischemic attack (TIA), and cerebral infarction without residual deficits Status: Acute Assessment and Plan: History of a CVA Patient was in rehab Patient is on warfarin at home Heparin drip stopped, due to sudden decrease in platelets Trend labs PT and OT Smoking cessation education (9) Hypokalemia: Code(s): E87.6 - Hypokalemia Status: Acute Assessment and Plan: K today is 3.3 Replace with 40meq of K Recheck at 1600 Trend labs Replace as needed (10)
--- NOTE | 2021-02-14 11:10 | WPDGICN ---
Assessment and Plan Assessment and plan (1) Choledocholithiasis: Code(s): K80.50 - Calculus of bile duct without cholangitis or cholecystitis without obstruction Status: Acute Assessment and Plan: Patient with choledocholithiasis evidence on CT scan and ultrasound imaging. This appears to be the etiology for elevated LFTs in the fever several days ago. Clinically improving on broad-spectrum antibiotic coverage. Plan is for ERCP which will be planned tomorrow morning. Patient is anticipating referral to [facility] but we will plan to proceed with ERCP unless transfer occurs before this can accomplished agree with continuing broad-spectrum antibiotics for the present time. Anticoagulation should be held in anticipation of ERCP tomorrow. (2) Elevated LFTs: Code(s): R79.89 - Other specified abnormal findings of blood chemistry Status: Acute Assessment and Plan: Elevated LFTs appear to be on the basis of choledocholithiasis. They are continuing to improve at present likely she had cholangitis on presentation. Clinically improving she may have passed a stone. Will plan to proceed with ERCP tomorrow anticoagulation will need to be held prior to this procedure (3) Recent cerebrovascular accident (CVA): Code(s): Z86.73 - Personal history of transient ischemic attack (TIA), and cerebral infarction without residual deficits Status: Acute (4) Atrial fibrillation: Code(s): I48.91 - Unspecified atrial fibrillation Status: Acute Assessment and Plan: Patient on anticoagulation currently heparin drip after recent CVA and because of atrial fib this will need to be held 6hours prior to the anticipated ERCP. GI Consult Note Consult date/time: 02/14/21 11:10 HPI: Brooklyn Morocho is a 70 year old female I am asked to see this morning for choledocholithiasis. Patient initially presented on 02/08/2021 to the rehab hospitalization after CVA. At the rehab hospital patient was noted to have fever to102? on 02/11/2021. Elevated LFTs were identified. She was sent to [facility] ER. The LFTs were noted to be elevated. Patient CT scan and ultrasound confirmed common bile duct gallstones. Patient initially was attempted to referred to [facility] for ERCP as this was unable to be accomplished at [facility] over the weekend. The beds were full at [facility] patient has been maintained on antibiotics at [facility]. During the weekend her LFTs have decline. The fever has broken. Patient is currently alert with some residual right-sided weakness. I was consulted this morning. Patient's family history is noncontributory. Patient has no prior known history of gallstones till this occurred. Patient has been maintained on Coumadin at the rehab institute. This been changed to heparin drip over the weekend. 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 They have 3 children. She is a homemaker. She has smoked as much as a pack of cigarettes per day since she was a teenager but recently cut down to half a pack of cigare
[2021-02-14 11:34] LABS: Basophils Absolute Auto 0.1 K/mm3 (0.0-0.1); Basophils Percent Auto 1.1 % (0.2-1.2); Eosinophils Absolute Auto 0.4 K/mm3 (0-0.3); Eosinophils Percent Auto 5.1 % (0-4.4); Hematocrit 28.5 % (37.0-47.0); Hemoglobin 9.5 g/dL (12.0-15.0); Immature Granulocyte Absolute 0.36 K/mm3 (0.00-0.031); Lymphocytes Absolute Auto 1.27 K/mm3 (0.9-3.2); Lymphocytes Percent Auto 17.6 % (18.3-44.2); Mean Corpuscular HGB Conc 33.3 g/dl (32-36); Mean Corpuscular Hemoglobin 32.2 pg (26-34); Mean Corpuscular Volume 96.6 fl (80-100); Mean Platelet Volume 10.8 fl (7.4-10.4); Monocytes Absolute Auto 0.9 K/mm3 (0.1-0.6); Monocytes Percent Auto 12.3 % (2.6-8.5); Neutrophils Absolute Auto 4.3 K/mm3 (1.3-6.7); Neutrophils Percent Auto 58.9 % (45.5-73.1); Nucleated Red Blood Cells Absolute Auto 0.1 K/mm3 (0.0-0.012); Platelet Count Result 179 k/mm3 (150-375); Red Blood Count 2.95 M/mm3 (4.2-5.4); Red Cell Distribution Width 12.9 % (11.5-14.5); White Blood Count 7.2 K/mm3 (4.5-10.0)
--- NOTE | 2021-02-14 11:36 | ECG_ITS ---
Measurements Intervals Odem Rate: 75 P: FL: 0 QRS: 199 QRSD: 175 T: 63 QT: 454 QTc: 509 Interpretive Statements ELECTRONIC VENTRICULAR PACEMAKER BASELINE ARTIFACT- I, III, V5-V6 NO FURTHER INTERPRETATION IS POSSIBLE ATYPICAL ECG Electronically Signed On 02-14-2021 14:41:17 CDT by Varun Kwok D.O.
[2021-02-14 11:52] LABS: INR 1.4; Prothrombin Time 17.3 Seconds (11.1-14.7)
[2021-02-14 11:54] LABS: Partial Thromboplastin Time 56.4 SECONDS (22.3-36.8)
[2021-02-14 11:55] LABS: D Dimer 1.86 ug/mL (<0.48)
[2021-02-14 13:10] LABS: Basophils Absolute Auto 0.1 K/mm3 (0.0-0.1); Eosinophils Absolute Auto 0.3 K/mm3 (0-0.3); Eosinophils Percent Auto 4.6 % (0-4.4); Hematocrit 29.2 % (37.0-47.0); Hemoglobin 9.7 g/dL (12.0-15.0); Immature Granulocyte Absolute 0.46 K/mm3 (0.00-0.031); Immature Granulocyte Percent A 6.4 % (0-0.5); Lymphocytes Absolute Auto 1.19 K/mm3 (0.9-3.2); Lymphocytes Percent Auto 16.5 % (18.3-44.2); Mean Corpuscular HGB Conc 33.2 g/dl (32-36); Mean Corpuscular Hemoglobin 32.1 pg (26-34); Mean Corpuscular Volume 96.7 fl (80-100); Mean Platelet Volume 11.5 fl (7.4-10.4); Monocytes Absolute Auto 0.9 K/mm3 (0.1-0.6); Monocytes Percent Auto 12.6 % (2.6-8.5); Neutrophils Absolute Auto 4.3 K/mm3 (1.3-6.7); Neutrophils Percent Auto 58.9 % (45.5-73.1); Nucleated Red Blood Cells Absolute Auto 0.1 K/mm3 (0.0-0.012); Nucleated Red Blood Cells Perc 1.2 % (0.0-0.2); Platelet Count Result 87 k/mm3 (150-375); Red Blood Count 3.02 M/mm3 (4.2-5.4); White Blood Count 7.2 K/mm3 (4.5-10.0)
[2021-02-14 13:26] LABS: INR 1.3; Prothrombin Time 16.3 Seconds (11.1-14.7)
[2021-02-14 13:27] LABS: Partial Thromboplastin Time 32.3 SECONDS (22.3-36.8)
[2021-02-14 13:30] LABS: Anion Gap 8 mmol/L (8-16); Blood Urea Nitrogen 14 mg/dL (7-17); Calcium 8.8 mg/dL (8.4-10.2); Carbon Dioxide 27 mmol/L (22-30); Chloride 104 mmol/L (98-107); Estimated CRCL calculation 64 ml/min; Estimated Glomerular Filt Rate > 60; Glucose 117 mg/dL (65-110); Potassium 3.3 mmol/L (3.4-5.0); Sodium 139 mmol/L (137-145)
[2021-02-14 19:47] VITALS: BP 145/85; PULSE 73; RESP 17; TEMP 36.6; O2SAT 100
[2021-02-15] VITALS (12 sets, daily range): BP systolic 138–160; BP diastolic 59–87; PULSE 74–76; RESP 17–23; TEMP 36–36.3; O2SAT 92–100
[2021-02-15 05:47] LABS: Hematocrit 26.4 % (37.0-47.0); Hemoglobin 9.1 g/dL (12.0-15.0); Mean Corpuscular HGB Conc 34.5 g/dl (32-36); Mean Corpuscular Hemoglobin 32.6 pg (26-34); Mean Corpuscular Volume 94.6 fl (80-100); Mean Platelet Volume 11.3 fl (7.4-10.4); Platelet Count Result 149 k/mm3 (150-375); Red Blood Count 2.79 M/mm3 (4.2-5.4); Red Cell Distribution Width 12.8 % (11.5-14.5)
[2021-02-15 05:57] LABS: Alanine Aminotransferase 160 U/L (4-35); Albumin Level 3.4 g/dL (3.5-5.1); Alkaline Phosphatase 324 U/L (38-126); Anion Gap 6 mmol/L (8-16); Aspartate Amino Transferase 92 U/L (14-36); Bilirubin,Total 2.1 mg/dL (0.2-1.3); Blood Urea Nitrogen 13 mg/dL (7-17); Calcium 8.8 mg/dL (8.4-10.2); Carbon Dioxide 26 mmol/L (22-30); Chloride 106 mmol/L (98-107); Estimated CRCL calculation 64 ml/min; Estimated Glomerular Filt Rate > 60; Glucose 96 mg/dL (65-110); Magnesium 2.4 mg/dL (1.6-2.3); Potassium 3.3 mmol/L (3.4-5.0); Sodium 138 mmol/L (137-145)
[2021-02-15 06:04] LABS: Partial Thromboplastin Time 27.2 SECONDS (22.3-36.8)
[2021-02-15] MEDS: AMPICILLIN SULB 3 GM/NS 100 ML 3 GM/100 ML VIAL IVPB ×4 (06:29→23:26)
[2021-02-15 06:55] LABS: Atypical Lymphocytes Present; Band Neutrophils Percent 6 % (0-6); Eosinophils Absolute Manual 0.42 K/mm3 (0.02-0.5); Eosinophils Percent Manual 6 % (0-4); Lymphocytes Absolute Manual 1.54 K/mm3 (1.1-4.5); Metamyelocytes Percent 2 %; Monocytes Absolute Manual 0.56 K/mm3 (0.1-0.90); Monocytes Percent Manual 8 % (3-9); Myelocytes Percent 1 %; Neutrophils Absolute Manual 4.27 K/mm3 (1.7-7.2); Neutrophils Percent Manual 55 % (46-73); Platelet Estimate Adequate (Adequate); Total Cells Counted 100
--- NOTE | 2021-02-15 08:33 | P.PNIM_ITS ---
Progress Note: A&P Assessment and Plan (1) Severe sepsis with acute organ dysfunction: Code(s): A41.9 - Sepsis, unspecified organism; R65.20 - Severe sepsis without septic shock Status: Acute Assessment and Plan: * patient met severe sepsis criteria on presentation with leukocytosis, fever of 102.9, acute kidney injury, tachypnea, metabolic encephalopathy, hyperbilirubinemia and transaminitis. * Source of infection: Choledocholithiasis with ascending cholangitis. * White blood cell count 14.1 upon admission down to 7.0 today * Lactic acid 0.8 * Blood cultures: NGTD * AST/ALT 92/160, alk-phos 324 * Right upper quadrant ultrasound: cholelithiasis, intrahepatic and extrahepatic biliary dilatation * Abdominal pelvis CT: Choledocholithiasis with dilatation intrahepatic and extrahepatic bile duct distended gallbladder * GI has been consulted and is planning an ERCP * Unasyn 3 g q.6 scheduled * Received 1 unit of normal saline in the ED * Trend labs * DVT prophylaxis SCDs, will need to add full dose Lovenox post procedure (2) Ascending cholangitis: Code(s): K83.09 - Other cholangitis Status: Acute Assessment and Plan: * Right upper quadrant ultrasound: cholelithiasis, intrahepatic and extrahepatic biliary dilatation * Abdominal pelvis CT: Choledocholithiasis with dilatation intrahepatic and extrahepatic bile duct distended gallbladder * Patient needs an ERCP, tentatively scheduled for tomorrow with Dr. Hay * NPO after MN * See above (3) Choledocholithiasis: Code(s): K80.50 - Calculus of bile duct without cholangitis or cholecystitis without obstruction Status: Acute Assessment and Plan: * Right upper quadrant ultrasound: cholelithiasis, intrahepatic and extrahepatic biliary dilatation * Abdominal pelvis CT: Choledocholithiasis with dilatation intrahepatic and extrahepatic bile duct distended gallbladder * See above (4) Transaminitis: Code(s): R74.01 - Elevation of levels of liver transaminase levels Status: Acute Assessment and Plan: * AST/ALT 229/365, alk-phos 317 on admission * AST/ALT 92/160 * Alk phos 324 * Jaundice seems to be resolved at this time * Right upper quadrant ultrasound: cholelithiasis, intrahepatic and extrahepatic biliary dilatation * Trend labs (5) Elevated LFTs: Code(s): R79.89 - Other specified abnormal findings of blood chemistry Status: Acute Assessment and Plan: * See above (6) Hyperbilirubinemia: Code(s): E80.6 - Other disorders of bilirubin metabolism Status: Acute Assessment and Plan: * Total bilirubin 6.5 upon admission * Down this morning to 2.1 * Cannot do MRCP due to patient having a pacemaker * ERCP scheduled for tomorrow * Continue trend (7) Recent cerebrovascular accident (CVA): Code(s): Z86.73 - Personal history of transient ischemic attack (TIA), and cerebral infarction without residual deficits Status: Acute Assessment and Plan: * History of a CVA * Patient was in rehab * Patient is on warfarin at home, not therapeutic * Heparin drip stopped, due to sudden decrease in platelets * will need full does heparin post procedure * Trend labs * PT and OT * Smoking cessation education (8) Hypokalemia: Code(s): E87.6 - Hypokalemia Status: Acute Assessment and Plan: * K today is 3.3 * Replace with 40meq of K
--- NOTE | 2021-02-15 08:33 | PM.IMPN ---
Progress Note: A&P Assessment and Plan (1) Severe sepsis with acute organ dysfunction: Code(s): A41.9 - Sepsis, unspecified organism; R65.20 - Severe sepsis without septic shock Status: Acute Assessment and Plan: patient met severe sepsis criteria on presentation with leukocytosis, fever of 102.9, acute kidney injury, tachypnea, metabolic encephalopathy, hyperbilirubinemia and transaminitis. Source of infection: Choledocholithiasis with ascending cholangitis. White blood cell count 14.1 upon admission down to 7.0 today Lactic acid 0.8 Blood cultures: NGTD AST/ALT 92/160, alk-phos 324 Right upper quadrant ultrasound: cholelithiasis, intrahepatic and extrahepatic biliary dilatation Abdominal pelvis CT: Choledocholithiasis with dilatation intrahepatic and extrahepatic bile duct distended gallbladder GI has been consulted and is planning an ERCP Unasyn 3 g q.6 scheduled Received 1 unit of normal saline in the ED Trend labs DVT prophylaxis SCDs, will need to add full dose Lovenox post procedure (2) Ascending cholangitis: Code(s): K83.09 - Other cholangitis Status: Acute Assessment and Plan: Right upper quadrant ultrasound: cholelithiasis, intrahepatic and extrahepatic biliary dilatation Abdominal pelvis CT: Choledocholithiasis with dilatation intrahepatic and extrahepatic bile duct distended gallbladder Patient needs an ERCP, tentatively scheduled for tomorrow with Dr. Satnam WELCHO after MN See above (3) Choledocholithiasis: Code(s): K80.50 - Calculus of bile duct without cholangitis or cholecystitis without obstruction Status: Acute Assessment and Plan: Right upper quadrant ultrasound: cholelithiasis, intrahepatic and extrahepatic biliary dilatation Abdominal pelvis CT: Choledocholithiasis with dilatation intrahepatic and extrahepatic bile duct distended gallbladder See above (4) Transaminitis: Code(s): R74.01 - Elevation of levels of liver transaminase levels Status: Acute Assessment and Plan: AST/ALT 229/365, alk-phos 317 on admission AST/ALT 92/160 Alk phos 324 Jaundice seems to be resolved at this time Right upper quadrant ultrasound: cholelithiasis, intrahepatic and extrahepatic biliary dilatation Trend labs (5) Elevated LFTs: Code(s): R79.89 - Other specified abnormal findings of blood chemistry Status: Acute Assessment and Plan: See above (6) Hyperbilirubinemia: Code(s): E80.6 - Other disorders of bilirubin metabolism Status: Acute Assessment and Plan: Total bilirubin 6.5 upon admission Down this morning to 2.1 Cannot do MRCP due to patient having a pacemaker ERCP scheduled for tomorrow Continue trend (7) Recent cerebrovascular accident (CVA): Code(s): Z86.73 - Personal history of transient ischemic attack (TIA), and cerebral infarction without residual deficits Status: Acute Assessment and Plan: History of a CVA Patient was in rehab Patient is on warfarin at home, not therapeutic Heparin drip stopped, due to sudden decrease in platelets will need full does heparin post procedure Trend labs PT and OT Smoking cessation education (8) Hypokalemia: Code(s): E87.6 - Hypokalemia Status: Acute Assessment and Plan: K today is 3.3 Replace with 40meq of K IV Trend labs Replace as needed (9) Atrial fibrillation: Code(s): I48.91 - Unspecified atrial fibrillation Status: Acute Assessment and Plan: Pt has a history of afib Probably what caused the stroke EKG shows paced rhythm SCDs for DVT prophylaxis for now (10) Thrombocytopenia: Code(s): D69.6 - Thrombocytopenia, unspecified Status: Acute Assessment and Plan: Platelets 149 this morning Seem to be labile heparin gtt stopped at this time Labs obtained for poss
--- NOTE | 2021-02-15 09:57 | P.CDI_ITS ---
CDI Query Clarification Request -02/14 Pulmonary embolism documented Please clarify if PE was: * Present on admission * Not present on admission * Unable to determine <Alesha Russo RN - Last Filed: 02/15/21 09:59> Probably had the PEs prior to arrival Patient placed on supplemental oxygen Heparin was started on arrival, so anticoagulated post admission <LUC Sidhu - Last Filed: 02/16/21 08:19>
--- NOTE | 2021-02-15 10:00 | PC.NURSE ---
Report called to [facility].
--- NOTE | 2021-02-15 10:49 | PC.NURSE ---
To GI lab via stretcher. Arce draining yellow urine.
[2021-02-15] MEDS: LACTATED RINGERS 1,000 ML 150 ML IV CONT (11:12)
--- NOTE | 2021-02-15 11:48 | PCOTNOTE ---
Attempted to see patient this am, however patient off floor for testing/procedure at this time.
--- NOTE | 2021-02-15 12:17 | WPDANESEPPF ---
Anes - Initial Pre Proc Eval Procedure: Operation Date: 02/15/21 13:00 Proposed Procedures p Endoscopic Retro Cholangiopancreatogram - Rhys Hay MD Date/Time: 02/15/21 12:17 Surgeon: LUC Siduh Pre Op Diagnosis: Choledocholithiasis Patient Data Age: 70 Gender: F Height: 1.75 m Weight: 106.5 kg Last Vital Signs Temp 96.8 F L 02/15/21 11:07 Pulse 75 02/15/21 11:07 Resp 22 H 02/15/21 11:07 BP 154/85 H 02/15/21 11:07 Pulse Ox 98 02/15/21 11:07 Allergies Allergy/AdvReac Type Severity Reaction Status Date / Time lisinopril Allergy Unknown Rash Verified 02/15/21 11:04 Home Medications Medication Instructions Recorded Confirmed Type amlodipine 10 mg PO DAILY 02/11/21 02/12/21 History atorvastatin 10 mg PO DAILY 02/11/21 02/12/21 History carvedilol 25 mg PO BID 02/11/21 02/12/21 History hydrochlorothiazide 25 mg PO DAILY 02/11/21 02/12/21 History losartan 100 mg PO DAILY 02/11/21 02/12/21 History potassium chloride 10 meq PO DAILY 02/11/21 02/12/21 History warfarin 2.5 mg PO 2XW 02/11/21 02/12/21 History omega-3 fatty acids 1,000 mg PO BID 02/12/21 02/12/21 History Laboratory Tests 02/14/21 02/14/21 02/14/21 13:00 13:00 13:00 WBC 7.2 K/mm3 K/mm3 (4.5-10.0) RBC 3.02 M/mm3 L M/mm3 (4.2-5.4) Hgb 9.7 g/dL L g/dL (12.0-15.0) Hct 29.2 % L % (37.0-47.0) MCV 96.7 fl fl (80-100) MCH 32.1 pg pg (26-34) MCHC 33.2 g/dl g/dl (32-36) RDW 13.0 % % (11.5-14.5) Plt Count 87 k/mm3 L D k/mm3 (150-375) MPV 11.5 fl H fl (7.4-10.4) Immature Gran % (Auto) 6.4 % H % (0-0.5) Neut % (Auto) 58.9 % % (45.5-73.1) Lymph % (Auto) 16.5 % L % (18.3-44.2) [place] % (Auto) 12.6 % H % (2.6-8.5) Eos % (Auto) 4.6 % H % (0-4.4) Baso % (Auto) 1.0 % % (0.2-1.2) Lymph # (Auto) 1.19 K/mm3 K/mm3 (0.9-3.2) [place] # (Auto) 0.9 K/mm3 H K/mm3 (0.1-0.6) Eos # (Auto) 0.3 K/mm3 K/mm3 (0-0.3) Baso # (Auto) 0.1 K/mm3 K/mm3 (0.0-0.1) Abs Immat Gran (auto) 0.46 K/mm3 H K/mm3 (0.00-0.031) Absolute Neuts (auto) 4.3 K/mm3 K/mm3 (1.3-6.7) Absolute Nucleated RBC 0.1 K/mm3 H K/mm3 (0.0-0.012) Total Counted Neutrophils % (Manual) Band Neutrophils % Lymphocytes % (Manual) Monocytes % (Manual) Eosinophils % (Manual) Metamyelocytes % Myelocytes % Nucleated RBC % 1.2 % H % (0.0-0.2) Abs Neuts (Manual) Abs Lymphs (Manual) Abs Monocytes (Manual) Absolute Eos (Manual) Atypical Lymphocytes Platelet Estimate % Immature Plt Fraction 15.0 % H % (0.9-11.2) PT 16.3 Seconds H Seconds (11.1-14.7) INR 1.3 APTT 32.3 SECONDS SECONDS (22.3-36.8) Sodium 139 mmol/L mmol/L (137-145) Potassium 3.3 mmol/L L mmol/L (3.4-5.0) Chloride 104 mmol/L mmol/L (98-107) Carbon Dioxide 27 mmol/L mmol/L (22-30) Anion Gap 8 mmol/L mmol/L (8-16) BUN 14 mg/dL mg/dL (7-17) Creatinine 0.90 mg/dL mg/dL (0.7-1.0) Estim Creat Clear Calc 64 ml/min ml/min Estimated GFR > 60 (59 - ) Glucose 117 mg/dL H mg/dL (65-110) Calcium 8.8 mg/dL mg/dL (8.4-10.2) Magnesium Total Bilirubin Direct Bilirubin AST ALT Alkaline Phosphatase Total Protein Albumin 02/15/21 02/15/21 02/15/21 05:23 05:23 05:23 WBC 7.0 K/mm3 K/mm3 (4.5-10.0) RBC 2.79 M/mm3 L M/mm3 (4.2-5.4) Hgb 9.1 g/dL L g/dL (12.0-15.0) Hct 26.4 % L % (37.0-47.0)
--- NOTE | 2021-02-15 14:40 | PC.NURSE ---
Returned from GI Lab via stretcher.
--- NOTE | 2021-02-15 19:22 | PM.CNGS ---
Assessment and Plan Assessment and plan (1) Chronic cholecystitis due to cholelithiasis with choledocholithiasis: Code(s): K80.64 - Calculus of gallbladder and bile duct with chronic cholecystitis without obstruction Status: Acute Assessment and Plan: At this time because of the patient's significant medical problems including the recent thrombotic stroke and thrombocytopenia possibly related to heparin I was somewhat Advil in about considering surgical intervention. Typically we would recommend a laparoscopic coli cholecystectomy to be done during the same admission as when an ERCP done is done for a common bile duct stone that caused obstruction. We know from the CT and ultrasound that she does have stones in her gallbladder. However, because of her significant comorbidities and increased risk with these problems I think that is reasonable since there was no signs of infection or gallbladder to delay gallbladder surgery at this point. I did explain to her where the gallstones came from and she states she is feeling better without abdominal pain tonight. Following this I did call her who was able to talk better and he immediately stated that he was not interested in have her having surgery and was hoping like Dr. harding her stated today after he talked to him following the ERCP that the patient would feel better tolerated diet and then go back for more rehab at the inpatient rehab center at [place]. He states that typically the get most of her medical care at [facility]. She has a youth specialist in that area. Her primary care physician is Dr. Navarro in [facility]. I explained things to him in asked him a few questions about her previous health. Her only previous abdominal surgery was a with her most recent child about sometime in the low 1970s. He did not know about her umbilical hernia but although not called on the CT scan I see a slight bulge and there appears to be a fascial defect at the level of the umbilicus to my view on CT. He now knows about this. Of the above we are not planning to proceed with any surgical intervention during this admission and the patient can go back to her stay at the inpatient rehab center at [place] and then if she continues to improve and all her physicians feel like she has made a recovery to the point at which she could possibly have an elective laparoscopic cholecystectomy it would be recommended. He understands that she could have recurrence of movement of the stones from the gallbladder into the common duct and she might have to have repeat ERCP if again it causes obstruction. (2) Ascending cholangitis: Code(s): K83.09 - Other cholangitis Status: Acute Assessment and Plan: This appears to be improved status post ERCP, in fact her bilirubin was coming down some prior to the ERCP. Antibiotics are continued at this time. (3) Elevated LFTs: Code(s): R79.89 - Other specified abnormal findings of blood chemistry Status: Acute Assessment and Plan: Improving and hopefully will improve more now that the ERCP with stone extraction is completed. (4) Recent cerebrovascular accident (CVA): Code(s): Z86.73 - Personal history of transient ischemic attack (TIA), and cerebral infarction without residual deficits Status: Acute Assessment and Plan: This is recent, and states that it is felt that perhaps she had because she was chronically on warfarin for her atrial fibrillation. Approximately 1-2 weeks prior to her stroke she went off for firm because of fairly severe nose bleed that she went to the ER for and then to an ENT physician for down near [facility]. (5) Hyperbilirubinemia: Code(s): E80.6 - Other disorders of bilirubin metabolism Status: Acute Assessment and Plan: improving (6) Tobacco abuse: Code(s): Z72.0 - Tobacco use Stat
[2021-02-15] MEDS: MELATONIN 3 MG TABLET PO (22:11)
[2021-02-16 03:24] VITALS: BP 177/83; PULSE 75; RESP 16; TEMP 37.1; O2SAT 98
[2021-02-16 05:42] LABS: Hematocrit 27.5 % (37.0-47.0); Hemoglobin 9.4 g/dL (12.0-15.0); Mean Corpuscular HGB Conc 34.2 g/dl (32-36); Mean Corpuscular Hemoglobin 32.3 pg (26-34); Mean Corpuscular Volume 94.5 fl (80-100); Mean Platelet Volume 10.7 fl (7.4-10.4); Platelet Count Result 179 k/mm3 (150-375); Red Blood Count 2.91 M/mm3 (4.2-5.4); Red Cell Distribution Width 12.9 % (11.5-14.5); White Blood Count 12.3 K/mm3 (4.5-10.0)
[2021-02-16 05:51] LABS: Alanine Aminotransferase 228 U/L (4-35); Albumin Level 3.5 g/dL (3.5-5.1); Alkaline Phosphatase 499 U/L (38-126); Anion Gap 8 mmol/L (8-16); Aspartate Amino Transferase 217 U/L (14-36); Bilirubin,Total 5.9 mg/dL (0.2-1.3); Blood Urea Nitrogen 16 mg/dL (7-17); Calcium 8.8 mg/dL (8.4-10.2); Carbon Dioxide 24 mmol/L (22-30); Chloride 106 mmol/L (98-107); Estimated CRCL calculation 64 ml/min; Estimated Glomerular Filt Rate > 60; Glucose 141 mg/dL (65-110); Magnesium 2.5 mg/dL (1.6-2.3); Potassium 3.7 mmol/L (3.4-5.0); Sodium 138 mmol/L (137-145)
[2021-02-16] MEDS: AMPICILLIN SULB 3 GM/NS 100 ML 3 GM/100 ML VIAL IVPB ×4 (05:57→23:40)
[2021-02-16 06:24] LABS: Band Neutrophils Percent 2 % (0-6); Lymphocytes Absolute Manual 0.24 K/mm3 (1.1-4.5); Metamyelocytes Percent 2 %; Monocytes Absolute Manual 0.24 K/mm3 (0.1-0.90); Monocytes Percent Manual 2 % (3-9); Myelocytes Percent 2 %; Neutrophils Absolute Manual 11.31 K/mm3 (1.7-7.2); Neutrophils Percent Manual 90 % (46-73); Nucleated Red Blood Cells 1 %; Platelet Estimate Adequate (Adequate); Total Cells Counted 100
[2021-02-16 06:25] LABS: Anisocytosis 1+ (NORMAL)
--- NOTE | 2021-02-16 08:15 | P.PNIM_ITS ---
Progress Note: A&P Assessment and Plan (1) Severe sepsis with acute organ dysfunction: Code(s): A41.9 - Sepsis, unspecified organism; R65.20 - Severe sepsis without septic shock Status: Acute Assessment and Plan: * patient met severe sepsis criteria on presentation with leukocytosis, fever of 102.9, acute kidney injury, tachypnea, metabolic encephalopathy, hyperbilirubinemia and transaminitis. * Source of infection: Choledocholithiasis with ascending cholangitis. * White blood cell count 14.1 upon admission down to 7.0 today * Lactic acid 0.8 * Blood cultures: NGTD * AST/ALT 217/228, alk-phos 499 * Right upper quadrant ultrasound: cholelithiasis, intrahepatic and extrahepatic biliary dilatation * Abdominal pelvis CT: Choledocholithiasis with dilatation intrahepatic and extrahepatic bile duct distended gallbladder * GI has been consulted and is planning an ERCP * Unasyn 3 g q.6 scheduled * Received 1 unit of normal saline in the ED * Trend labs * DVT prophylaxis SCDs, GI requesting no anticoagulation for the next week (2) Ascending cholangitis: Code(s): K83.09 - Other cholangitis Status: Acute Assessment and Plan: * Right upper quadrant ultrasound: cholelithiasis, intrahepatic and extrahepatic biliary dilatation * Abdominal pelvis CT: Choledocholithiasis with dilatation intrahepatic and extrahepatic bile duct distended gallbladder * ERCP and sphincterotomy was performed and stone was removed * Advance diet as tolerated * General surgery consult- Procedure is warranted at this time, especially with patients history and chronic disease * See above (3) Choledocholithiasis: Code(s): K80.50 - Calculus of bile duct without cholangitis or cholecystitis without obstruction Status: Acute Assessment and Plan: * Right upper quadrant ultrasound: cholelithiasis, intrahepatic and extrahepatic biliary dilatation * Abdominal pelvis CT: Choledocholithiasis with dilatation intrahepatic and extrahepatic bile duct distended gallbladder * See above (4) Transaminitis: Code(s): R74.01 - Elevation of levels of liver transaminase levels Status: Acute Assessment and Plan: * AST/ALT 229/365, alk-phos 317 on admission * AST/ALT 217/228 * Alk phos 499 * Jaundice seems to be resolved at this time * Right upper quadrant ultrasound: cholelithiasis, intrahepatic and extrahepatic biliary dilatation * Trend labs (5) Elevated LFTs: Code(s): R79.89 - Other specified abnormal findings of blood chemistry Status: Acute Assessment and Plan: * See above (6) Hyperbilirubinemia: Code(s): E80.6 - Other disorders of bilirubin metabolism Status: Acute Assessment and Plan: * Total bilirubin 6.5 upon admission * this morning to 5.9 * Cannot do MRCP due to patient having a pacemaker * ERCP performed 02/15/21 * Continue trend (7) Recent cerebrovascular accident (CVA): Code(s): Z86.73 - Personal history of transient ischemic attack (TIA), and cerebral infarction without residual deficits Status: Acute Assessment and Plan: * History of a CVA * Patient was in rehab * Patient is on warfarin at home, not therapeutic * Heparin drip stopped, due to sudden decrease in platelets * will need full does heparin post procedure * Trend labs * PT and OT * Smoking cessation education (8) Hypokalemia: C
--- NOTE | 2021-02-16 08:15 | PM.IMPN ---
Progress Note: A&P Assessment and Plan (1) Severe sepsis with acute organ dysfunction: Code(s): A41.9 - Sepsis, unspecified organism; R65.20 - Severe sepsis without septic shock Status: Acute Assessment and Plan: patient met severe sepsis criteria on presentation with leukocytosis, fever of 102.9, acute kidney injury, tachypnea, metabolic encephalopathy, hyperbilirubinemia and transaminitis. Source of infection: Choledocholithiasis with ascending cholangitis. White blood cell count 14.1 upon admission down to 7.0 today Lactic acid 0.8 Blood cultures: NGTD AST/ALT 217/228, alk-phos 499 Right upper quadrant ultrasound: cholelithiasis, intrahepatic and extrahepatic biliary dilatation Abdominal pelvis CT: Choledocholithiasis with dilatation intrahepatic and extrahepatic bile duct distended gallbladder GI has been consulted and is planning an ERCP Unasyn 3 g q.6 scheduled Received 1 unit of normal saline in the ED Trend labs DVT prophylaxis SCDs, GI requesting no anticoagulation for the next week (2) Ascending cholangitis: Code(s): K83.09 - Other cholangitis Status: Acute Assessment and Plan: Right upper quadrant ultrasound: cholelithiasis, intrahepatic and extrahepatic biliary dilatation Abdominal pelvis CT: Choledocholithiasis with dilatation intrahepatic and extrahepatic bile duct distended gallbladder ERCP and sphincterotomy was performed and stone was removed Advance diet as tolerated General surgery consult- Procedure is warranted at this time, especially with patients history and chronic disease See above (3) Choledocholithiasis: Code(s): K80.50 - Calculus of bile duct without cholangitis or cholecystitis without obstruction Status: Acute Assessment and Plan: Right upper quadrant ultrasound: cholelithiasis, intrahepatic and extrahepatic biliary dilatation Abdominal pelvis CT: Choledocholithiasis with dilatation intrahepatic and extrahepatic bile duct distended gallbladder See above (4) Transaminitis: Code(s): R74.01 - Elevation of levels of liver transaminase levels Status: Acute Assessment and Plan: AST/ALT 229/365, alk-phos 317 on admission AST/ALT 217/228 Alk phos 499 Jaundice seems to be resolved at this time Right upper quadrant ultrasound: cholelithiasis, intrahepatic and extrahepatic biliary dilatation Trend labs (5) Elevated LFTs: Code(s): R79.89 - Other specified abnormal findings of blood chemistry Status: Acute Assessment and Plan: See above (6) Hyperbilirubinemia: Code(s): E80.6 - Other disorders of bilirubin metabolism Status: Acute Assessment and Plan: Total bilirubin 6.5 upon admission this morning to 5.9 Cannot do MRCP due to patient having a pacemaker ERCP performed 02/15/21 Continue trend (7) Recent cerebrovascular accident (CVA): Code(s): Z86.73 - Personal history of transient ischemic attack (TIA), and cerebral infarction without residual deficits Status: Acute Assessment and Plan: History of a CVA Patient was in rehab Patient is on warfarin at home, not therapeutic Heparin drip stopped, due to sudden decrease in platelets will need full does heparin post procedure Trend labs PT and OT Smoking cessation education (8) Hypokalemia: Code(s): E87.6 - Hypokalemia Status: Acute Assessment and Plan: K today is 3.7 Trend labs Replace as needed (9) Atrial fibrillation: Code(s): I48.91 - Unspecified atrial fibrillation Status: Acute Assessment and Plan: Pt has a history of afib Probably what caused the stroke EKG shows paced rhythm SCDs for DVT prophylaxis for now (10) Thrombocytopenia: Code(s): D69.6 - Thrombocytopenia, unspecified Status: Acute Assessment and Plan: Platelets 179 this
[2021-02-16 11:34] VITALS: PULSE 77
[2021-02-16] MEDS: carvediloL 25 MG TABLET PO ×2 (11:34→18:27)
[2021-02-16] MEDS: amLODIPine BESYLATE 5 MG TABLET 10 MG PO (11:34)
[2021-02-16] MEDS: POTASSIUM CHLORIDE 10 MEQ TABLET.ER PO (11:35)
[2021-02-16] MEDS: hydroCHLOROthiazide 25 MG TABLET PO (11:35)
[2021-02-16] MEDS: BUMETANIDE INJ 1 MG/4 ML VIAL IV PUSH (11:35)
[2021-02-16] MEDS: ATORVASTATIN 10 MG TABLET PO (11:35)
--- NOTE | 2021-02-16 12:16 | WPDGIPROGNO ---
Progress Note: A&P Assessment and Plan (1) Choledocholithiasis: Code(s): K80.50 - Calculus of bile duct without cholangitis or cholecystitis without obstruction Status: Acute Assessment and Plan: Patient with gallstones choledocholithiasis. Status post ERCP yesterday with sphincterotomy. Was felt that common duct was cleared of stones but she is certainly at risk of passing additional stones. Currently doing well asymptomatic today. (2) Elevated LFTs: Code(s): R79.89 - Other specified abnormal findings of blood chemistry Status: Acute Assessment and Plan: Elevated LFTs after manipulation of the bile duct yesterday. This may be related to ERCP however cannot exclude that additional stones may be in the common duct and attempting to pass out. If LFTs continue to increase then follow-up ERCP would be indicated after an interval. Agree with surgical evaluation for ultimate cholecystectomy given her cholelithiasis and risk for passage of additional stones. (3) Acute CVA (cerebrovascular accident): Code(s): I63.9 - Cerebral infarction, unspecified Status: Acute Assessment and Plan: Patient has recent CVA with right-sided weakness. Would continue to hold anticoagulation given her gallbladder disease at the present time and recent sphincterotomy. Subjective Date/time seen: 02/16/21 12:16 Patient alert and comfortable this morning. Offers no specific complaints. Denies abdominal pain. Had ERCP yesterday. Review of Systems Review of Systems: All systems reviewed & are unremarkable except as noted in HPI and below Exam Narrative: Physical exam reveals patient comfortable at rest. Afebrile and anicteric. Lungs are clear. Heart without murmur. Abdomen soft nontender with no organomegaly. Objective Data Vital Signs Vital Signs: Vital Signs - 24 hr 02/15/21 13:37 02/15/21 13:47 02/15/21 13:57 Temperature 97.3 F L Pulse Rate 76 74 76 Respiratory Rate 20 22 H 20 Blood Pressure 157/87 H 138/75 160/59 H Pulse Oximetry 100 100 100 02/15/21 14:07 02/15/21 14:17 02/15/21 14:27 Temperature 96.8 F L Pulse Rate 76 76 76 Respiratory Rate 20 19 23 H Blood Pressure 140/62 149/82 H 151/81 H Pulse Oximetry 100 99 99 02/15/21 14:40 02/15/21 19:34 02/15/21 20:13 Temperature 97.4 F L 97.1 F L Pulse Rate 76 75 76 Respiratory Rate 18 17 18 Blood Pressure 150/76 H 143/76 H Pulse Oximetry 92 98 98 02/16/21 03:24 02/16/21 11:34 Temperature 98.8 F Pulse Rate 75 77 Respiratory Rate 16 Blood Pressure 177/83 H Pulse Oximetry 98 Intake/Output Intake/Output: Intake & Output 02/13/21 02/14/21 02/15/21 02/16/21 23:59 23:59 23:59 23:59 Intake Total 4013 740 1340 420 Output Total 3750 4000 1925 700 Balance 336 -3260 -585 -280 Meds/Results Medications: Active Medications Generic Name Dose Route Start Last Admin Trade Name Freq PRN Reason Stop Dose Admin Amlodipine Besylate 10 mg 02/16/21 09:30 02/16/21 11:34 Amlodipine Besylate 5 Mg Tablet PO 10 mg DAILY DIMPLE Administration Atorvastatin Calcium 10 mg 02/16/21 09:30 02/16/21 11:35 Atorvastatin 10 Mg Tablet PO 10 mg DAILY DIMPLE Administration Carvedilol 25 mg 02/16/21 09:30 02/16/21 11:34 Carvedilol 25 Mg Tablet PO 25 mg BID DIMPLE Administration Hydrochlorothiazide 25 mg 02/16/21 09:30 02/16/21 11:35 Hydrochlorothiazide 25 Mg Tablet PO 25 mg DAILY DIMPLE Administration Ampicillin Sodium/Sulbactam Sodium 3 gm in 100 mls @ 200 mls/hr 02/12/21 00:00 02/16/21 11:36 Unasyn 3 Gm/Ns 100 Ml IVPB 200 mls/hr Q6H DIMPLE Administration Losartan Potassium 100 mg 02/17/21 09:00 Losartan Potassium 100 Mg Tablet PO DAILY DIMPLE Melatonin 3 mg 02/15/21 21:52 02/15/21 22:11 Melatonin 3 Mg Tablet PO 3 mg HS PRN Administration Sleep Ondansetron HCl 4 mg 02/12/21 04:43 02/12/21 19:44 Ondansetron Inj 4 Mg/2 Ml Vial IV PUSH 4 mg Q
[2021-02-16 13:18] LABS: Heparin Induced Platelet Antib Positive (Negative)
[2021-02-16 13:27] LABS: Heparin, Anti-XA <0.20 IU/mL
[2021-02-16 14:00] VITALS: BP 131/69; PULSE 75; RESP 18; TEMP 36.1; O2SAT 97
--- NOTE | 2021-02-16 14:08 | WPDANESPN ---
Anes - Prog Note Post-Op Date/Time: 02/16/21 14:08 Cardiovascular status: normal Respiratory status: normal Airway patency: baseline Mental status: baseline Post-Op hydration status: normal Vital Signs: Last Vital Signs Temp 37.1 C 02/16/21 03:24 Pulse 77 02/16/21 11:34 Resp 16 02/16/21 03:24 BP 177/83 H 02/16/21 03:24 Pulse Ox 98 02/16/21 03:24 Pain Score (VAS): 2 I/O: Intake & Output 02/15/21 02/16/21 02/16/21 23:59 07:59 15:59 Intake Total 340 300 220 Output Total 525 700 Balance -185 -400 220 Laboratory Tests 02/16/21 05:26 02/16/21 05:26 02/14/21 02/14/21 02/16/21 11:16 11:16 05:26 WBC 12.3 H RBC 2.91 L Hgb 9.4 L Hct 27.5 L MCV 94.5 MCH 32.3 MCHC 34.2 RDW 12.9 Plt Count 179 MPV 10.7 H Immature Gran % (Auto) Not Reportable Neut % (Auto) Not Reportable Lymph % (Auto) Not Reportable [place] % (Auto) Not Reportable Eos % (Auto) Not Reportable Baso % (Auto) Not Reportable Lymph # (Auto) Not Reportable [place] # (Auto) Not Reportable Eos # (Auto) Not Reportable Baso # (Auto) Not Reportable Abs Immat Gran (auto) Not Reportable Absolute Neuts (auto) Not Reportable Absolute Nucleated RBC Not Reportable Total Counted 100 Neutrophils % (Manual) 90 H Band Neutrophils % 2 Lymphocytes % (Manual) 2.0 L Monocytes % (Manual) 2 L Metamyelocytes % 2 Myelocytes % 2 Nucleated RBC % Not Reportable Abs Neuts (Manual) 11.31 H Abs Lymphs (Manual) 0.24 L Abs Monocytes (Manual) 0.24 Nucleated RBCs 1 Platelet Estimate Adequate Anisocytosis 1+ Heparin Anti-Xa Level <0.20 L Sodium Potassium Chloride Carbon Dioxide Anion Gap BUN Creatinine Estim Creat Clear Calc Estimated GFR Glucose Calcium Magnesium Total Bilirubin AST ALT Alkaline Phosphatase Total Protein Albumin Heparin-induced Plt Ab Positive A* Hep-Induced Plt Ab Cmmt 0.562 02/16/21 05:26 WBC RBC Hgb Hct MCV MCH MCHC RDW Plt Count MPV Immature Gran % (Auto) Neut % (Auto) Lymph % (Auto) [place] % (Auto) Eos % (Auto) Baso % (Auto) Lymph # (Auto) [place] # (Auto) Eos # (Auto) Baso # (Auto) Abs Immat Gran (auto) Absolute Neuts (auto) Absolute Nucleated RBC Total Counted Neutrophils % (Manual) Band Neutrophils % Lymphocytes % (Manual) Monocytes % (Manual) Metamyelocytes % Myelocytes % Nucleated RBC % Abs Neuts (Manual) Abs Lymphs (Manual) Abs Monocytes (Manual) Nucleated RBCs Platelet Estimate Anisocytosis Heparin Anti-Xa Level Sodium 138 Potassium 3.7 Chloride 106 Carbon Dioxide 24 Anion Gap 8 BUN 16 Creatinine 0.90 Estim Creat Clear Calc 64 Estimated GFR > 60 Glucose 141 H Calcium 8.8 Magnesium 2.5 H Total Bilirubin 5.9 H AST 217 H ALT 228 H Alkaline Phosphatase 499 H Total Protein 7.0 Albumin 3.5 Heparin-induced Plt Ab Hep-Induced Plt Ab Cmmt Post-procedural complaints: none Patient Feedback: Patient satisfied with anesthetic care.
[2021-02-16 18:27] VITALS: PULSE 73
[2021-02-16 20:00] VITALS: PULSE 75; RESP 16; O2SAT 94
[2021-02-16 21:16] VITALS: BP 121/69; PULSE 75; RESP 16; TEMP 36.5; O2SAT 94
[2021-02-17 05:10] VITALS: BP 131/74; PULSE 75; RESP 16; TEMP 36.6; O2SAT 98
[2021-02-17 05:52] LABS: Hemoglobin 9.5 g/dL (12.0-15.0); Mean Corpuscular HGB Conc 33.9 g/dl (32-36); Mean Corpuscular Hemoglobin 32.8 pg (26-34); Mean Corpuscular Volume 96.6 fl (80-100); Mean Platelet Volume 11.2 fl (7.4-10.4); Platelet Count Result 177 k/mm3 (150-375); Red Cell Distribution Width 13.6 % (11.5-14.5)
[2021-02-17 06:08] LABS: Alanine Aminotransferase 248 U/L (4-35); Albumin Level 3.6 g/dL (3.5-5.1); Alkaline Phosphatase 532 U/L (38-126); Anion Gap 8 mmol/L (8-16); Aspartate Amino Transferase 163 U/L (14-36); Bilirubin Direct 0.3 mg/dL (0-0.3); Bilirubin,Total 3.3 mg/dL (0.2-1.3); Blood Urea Nitrogen 18 mg/dL (7-17); Calcium 8.8 mg/dL (8.4-10.2); Carbon Dioxide 28 mmol/L (22-30); Chloride 101 mmol/L (98-107); Estimated CRCL calculation 53 ml/min; Estimated Glomerular Filt Rate 49; Glucose 118 mg/dL (65-110); Magnesium 2.2 mg/dL (1.6-2.3); Potassium 3.3 mmol/L (3.4-5.0); Sodium 137 mmol/L (137-145)
[2021-02-17] MEDS: AMPICILLIN SULB 3 GM/NS 100 ML 3 GM/100 ML VIAL IVPB ×2 (06:16→11:39)
[2021-02-17 07:12] LABS: Band Neutrophils Percent 6 % (0-6); Lymphocytes Absolute Manual 0.14 K/mm3 (1.1-4.5); Monocytes Absolute Manual 0.14 K/mm3 (0.1-0.90); Monocytes Percent Manual 2 % (3-9); Neutrophils Absolute Manual 6.72 K/mm3 (1.7-7.2); Neutrophils Percent Manual 90 % (46-73); Nucleated Red Blood Cells 1 %; Platelet Estimate Adequate (Adequate); Total Cells Counted 100
[2021-02-17 07:13] LABS: Anisocytosis 1+ (NORMAL); Ovalocytes 1+ (NORMAL); Poikilocytosis 1+ (NORMAL)
[2021-02-17 08:59] VITALS: PULSE 69
[2021-02-17] MEDS: ATORVASTATIN 10 MG TABLET PO (08:59)
[2021-02-17] MEDS: carvediloL 25 MG TABLET PO (08:59)
[2021-02-17] MEDS: POTASSIUM CHLORIDE 20 MEQ TABLET 40 MEQ PO (08:59)
[2021-02-17] MEDS: POTASSIUM CHLORIDE 10 MEQ TABLET.ER PO (08:59)
[2021-02-17] MEDS: hydroCHLOROthiazide 25 MG TABLET PO (08:59)
[2021-02-17] MEDS: LOSARTAN POTASSIUM 100 MG TABLET PO (09:00)
[2021-02-17] MEDS: amLODIPine BESYLATE 5 MG TABLET 10 MG PO (09:00)
--- NOTE | 2021-02-17 09:00 | PM.DS ---
DS: Admitting Diagnosis Discharge Date Date of Service 02/17/21 09:00 Admitting Diagnosis Choledocholithiasis DS: Discharge Diagnosis Discharge Diagnosis (1) Severe sepsis with acute organ dysfunction: Code(s): A41.9 - Sepsis, unspecified organism; R65.20 - Severe sepsis without septic shock Status: Acute Assessment and Plan: patient met severe sepsis criteria on presentation with leukocytosis, fever of 102.9, acute kidney injury, tachypnea, metabolic encephalopathy, hyperbilirubinemia and transaminitis. Source of infection: Choledocholithiasis with ascending cholangitis. White blood cell count 14.1 upon admission down to 7.0 today Lactic acid 0.8 Blood cultures: NGTD AST/ALT 217/228, alk-phos 499 Right upper quadrant ultrasound: cholelithiasis, intrahepatic and extrahepatic biliary dilatation Abdominal pelvis CT: Choledocholithiasis with dilatation intrahepatic and extrahepatic bile duct distended gallbladder GI has been consulted and is planning an ERCP Unasyn 3 g q.6 scheduled Received 1 unit of normal saline in the ED Trend labs DVT prophylaxis SCDs, GI requesting no anticoagulation for the next week Seems resolved (2) Ascending cholangitis: Code(s): K83.09 - Other cholangitis Status: Acute Assessment and Plan: Right upper quadrant ultrasound: cholelithiasis, intrahepatic and extrahepatic biliary dilatation Abdominal pelvis CT: Choledocholithiasis with dilatation intrahepatic and extrahepatic bile duct distended gallbladder ERCP and sphincterotomy was performed and stone was removed Advance diet as tolerated General surgery consult- Procedure is warranted at this time, especially with patients history and chronic disease See above (3) Choledocholithiasis: Code(s): K80.50 - Calculus of bile duct without cholangitis or cholecystitis without obstruction Status: Acute Assessment and Plan: Right upper quadrant ultrasound: cholelithiasis, intrahepatic and extrahepatic biliary dilatation Abdominal pelvis CT: Choledocholithiasis with dilatation intrahepatic and extrahepatic bile duct distended gallbladder See above (4) Transaminitis: Code(s): R74.01 - Elevation of levels of liver transaminase levels Status: Acute Assessment and Plan: AST/ALT 229/365, alk-phos 317 on admission AST/ALT 163/248 Alk phos 532 Jaundice seems to be resolved at this time Right upper quadrant ultrasound: cholelithiasis, intrahepatic and extrahepatic biliary dilatation Trend labs (5) Elevated LFTs: Code(s): R79.89 - Other specified abnormal findings of blood chemistry Status: Acute Assessment and Plan: See above (6) Hyperbilirubinemia: Code(s): E80.6 - Other disorders of bilirubin metabolism Status: Acute Assessment and Plan: Total bilirubin 6.5 upon admission this morning to 3.3 Cannot do MRCP due to patient having a pacemaker ERCP performed 02/15/21 Continue trend (7) Recent cerebrovascular accident (CVA): Code(s): Z86.73 - Personal history of transient ischemic attack (TIA), and cerebral infarction without residual deficits Status: Acute Assessment and Plan: History of a CVA Patient was in rehab Patient is on warfarin at home, not therapeutic Heparin drip stopped, due to sudden decrease in platelets will need full does heparin post procedure Trend labs PT and OT Smoking cessation education (8) Hypokalemia: Code(s): E87.6 - Hypokalemia Status: Acute Assessment and Plan: K today is 3.3 Trend labs Replace as needed (9) Atrial fibrillation: Code(s): I48.91 - Unspecified atrial fibrillation Status: Acute Assessment and Plan: Pt has a history of afib Probably what caused the stroke EKG shows paced rhythm SCDs for DVT prophylaxis for now (10) Thromboc
--- NOTE | 2021-02-17 09:00 | P.DS_ITS ---
DS: Admitting Diagnosis Discharge Date Date of Service 02/17/21 09:00 Admitting Diagnosis Choledocholithiasis DS: Discharge Diagnosis Discharge Diagnosis (1) Severe sepsis with acute organ dysfunction: Code(s): A41.9 - Sepsis, unspecified organism; R65.20 - Severe sepsis without septic shock Status: Acute Assessment and Plan: * patient met severe sepsis criteria on presentation with leukocytosis, fever of 102.9, acute kidney injury, tachypnea, metabolic encephalopathy, hyperbilirub inemia and transaminitis. * Source of infection: Choledocholithiasis with ascending cholangitis. * White blood cell count 14.1 upon admission down to 7.0 today * Lactic acid 0.8 * Blood cultures: NGTD * AST/ALT 217/228, alk-phos 499 * Right upper quadrant ultrasound: cholelithiasis, intrahepatic and extrahepatic biliary dilatation * Abdominal pelvis CT: Choledocholithiasis with dilatation intrahepatic and extrahepatic bile duct distended gallbladder * GI has been consulted and is planning an ERCP * Unasyn 3 g q.6 scheduled * Received 1 unit of normal saline in the ED * Trend labs * DVT prophylaxis SCDs, GI requesting no anticoagulation for the next week Seems resolved (2) Ascending cholangitis: Code(s): K83.09 - Other cholangitis Status: Acute Assessment and Plan: * Right upper quadrant ultrasound: cholelithiasis, intrahepatic and extrahepatic biliary dilatation * Abdominal pelvis CT: Choledocholithiasis with dilatation intrahepatic and extrahepatic bile duct distended gallbladder * ERCP and sphincterotomy was performed and stone was removed * Advance diet as tolerated * General surgery consult- Procedure is warranted at this time, especially with patients history and chronic disease * See above (3) Choledocholithiasis: Code(s): K80.50 - Calculus of bile duct without cholangitis or cholecystitis without obstruction Status: Acute Assessment and Plan: * Right upper quadrant ultrasound: cholelithiasis, intrahepatic and extrahepatic biliary dilatation * Abdominal pelvis CT: Choledocholithiasis with dilatation intrahepatic and extrahepatic bile duct distended gallbladder * See above (4) Transaminitis: Code(s): R74.01 - Elevation of levels of liver transaminase levels Status: Acute Assessment and Plan: * AST/ALT 229/365, alk-phos 317 on admission * AST/ALT 163/248 * Alk phos 532 * Jaundice seems to be resolved at this time * Right upper quadrant ultrasound: cholelithiasis, intrahepatic and extrahepatic biliary dilatation * Trend labs (5) Elevated LFTs: Code(s): R79.89 - Other specified abnormal findings of blood chemistry Status: Acute Assessment and Plan: * See above (6) Hyperbilirubinemia: Code(s): E80.6 - Other disorders of bilirubin metabolism Status: Acute Assessment and Plan: * Total bilirubin 6.5 upon admission * this morning to 3.3 * Cannot do MRCP due to patient having a pacemaker * ERCP performed 02/15/21 * Continue trend (7) Recent cerebrovascular accident (CVA): Code(s): Z86.73 - Personal history of transient ischemic attack (TIA), and cerebral infarction without residual deficits Status: Acute Assessment and Plan: * History of a CVA * Patient was in rehab * Patient is on warfarin at home, not therapeutic * Heparin drip stopped, due to sudden decrease in platelets * will need f
--- NOTE | 2021-02-17 09:51 | WPDGIPROGNO ---
Progress Note: A&P Assessment and Plan (1) Elevated LFTs: Code(s): R79.89 - Other specified abnormal findings of blood chemistry Status: Acute Assessment and Plan: Patient's LFTs are trending down. Direct bilirubin is 0 suggesting relieved obstruction. Would recommend monitoring LFTs after discharge to ensure complete resolution. I should be notified of fever abdominal pain recurs. (2) Chronic cholecystitis due to cholelithiasis with choledocholithiasis: Code(s): K80.64 - Calculus of gallbladder and bile duct with chronic cholecystitis without obstruction Status: Acute Assessment and Plan: Surgery is followed to contemplate cholecystectomy. (3) Acute CVA (cerebrovascular accident): Code(s): I63.9 - Cerebral infarction, unspecified Status: Acute Assessment and Plan: Patient with recent CVA with right-sided weakness. She will return to rehab after discharge. Subjective Date/time seen: 02/17/21 09:51 Patient alert and comfortable this morning. Tolerating low-fat diet. Continues to have right side weakness after recent CVA. She denies abdominal pain. Review of Systems Review of Systems: All systems reviewed & are unremarkable except as noted in HPI and below Exam Narrative: Physical exam reveals patient to be alert. Vital signs stable. Comfortable at rest. Abdomen is soft bowel sounds are present nontender with no organomegaly.. Objective Data Vital Signs Vital Signs: Vital Signs - 24 hr 02/16/21 11:34 02/16/21 14:00 02/16/21 18:27 Temperature 97.0 F L Pulse Rate 77 75 73 Respiratory Rate 18 Blood Pressure 131/69 Pulse Oximetry 97 02/16/21 20:00 02/16/21 21:16 02/17/21 05:10 Temperature 97.7 F 97.8 F Pulse Rate 75 75 75 Respiratory Rate 16 16 16 Blood Pressure 121/69 131/74 Pulse Oximetry 94 94 98 02/17/21 08:59 Temperature Pulse Rate 69 Respiratory Rate Blood Pressure Pulse Oximetry Intake/Output Intake/Output: Intake & Output 02/14/21 02/15/21 02/16/21 02/17/21 23:59 23:59 23:59 23:59 Intake Total 740 1340 1300 660 Output Total 4000 1925 1700 700 [place] -[phone] -585 -400 -40 Meds/Results Medications: Active Medications Generic Name Dose Route Start Last Admin Trade Name Freq PRN Reason Stop Dose Admin Amlodipine Besylate 10 mg 02/16/21 09:30 02/17/21 09:00 Amlodipine Besylate 5 Mg Tablet PO 10 mg DAILY [facility]IM[facility] Administration Atorvastatin Calcium 10 mg 02/16/21 09:30 02/17/21 08:59 Atorvastatin 10 Mg Tablet PO 10 mg DAILY [facility]IM[facility] Administration Carvedilol 25 mg 02/16/21 09:30 02/17/21 08:59 Carvedilol 25 Mg Tablet PO 25 mg BID DIMPLE Administration Hydrochlorothiazide 25 mg 02/16/21 09:30 02/17/21 08:59 Hydrochlorothiazide 25 Mg Tablet PO 25 mg DAILY [facility] Administration Ampicillin Sodium/Sulbactam Sodium 3 gm in 100 mls @ 200 mls/hr 02/12/21 00:00 02/17/21 06:44 Unasyn 3 Gm/Ns 100 Ml IVPB Infused Q6H DIMPLE Infusion Losartan Potassium 100 mg 02/17/21 09:00 02/17/21 09:00 Losartan Potassium 100 Mg Tablet PO 100 mg DAILY DIM[facility] Administration Melatonin 3 mg 02/15/21 21:52 02/15/21 22:11 Melatonin 3 Mg Tablet PO 3 mg HS PRN Administration Sleep Ondansetron HCl 4 mg 02/12/21 04:43 02/12/21 19:44 Ondansetron Inj 4 Mg/2 Ml Vial IV PUSH 4 mg Q4H PRN Administration Nausea Potassium Chloride 10 meq 02/16/21 09:30 02/17/21 08:59 Potassium Chloride 10 Meq Tablet.Er PO 10 meq DAILY DIM[facility] Administration Tamsulosin HCl 0.4 mg 02/17/21 09:10 Tamsulosin Hcl 0.4 Mg Capsule PO QAM [facility] Radiology Results: ITS Impressions Abdomen/Pelvis CT 02/11/21 14:12 IMPRESSION: Choledocholithiasis with dilatation of the intrahepatic and extra hepatic bile ducts Cholelithiasis, distended gallbladder Diverticulosis of the colon; no CT evidence of diverticulitis Upper Quadrant Ultrasound 02/11/21 14:
[2021-02-17] MEDS: TAMSULOSIN HCL 0.4 MG CAPSULE PO (11:39)
[2021-02-17 11:58] LABS: EDCOVIDSCREEN Negative (Negative)
== END 2021-02-17 13:03 | DRG 871 ==
LOC: ANHED 02-12 04:46 → ANH2MED 02-12 05:14
PROVIDERS: Emergency Medicine; Internal Medicine Gastroenterology; Admitting Provider Internal Medicine; Emergency Provider Emergency Medicine; PCP Family Medicine; Visit Provider Nurse Practitioner
PROC: 0FC98ZZ Extirpation of Matter from Common Bile Duct, Via Natural or Artificial Opening Endoscopic (ICD-10-PCS; CPT 43260; principal; 2021-02-15 13:00)
DX: A41.9 Sepsis, unspecified organism (principal); G93.41 Metabolic encephalopathy; I26.99 Other pulmonary embolism without acute cor pulmonale; K80.71 Calculus of gallbladder and bile duct without cholecystitis with obstruction; K80.31 Calculus of bile duct with cholangitis, unspecified, with obstruction; N17.9 Acute kidney failure, unspecified; I69.351 Hemiplegia and hemiparesis following cerebral infarction affecting right dominant side; I48.20 Chronic atrial fibrillation, unspecified; I42.8 Other cardiomyopathies; I50.20 Unspecified systolic (congestive) heart failure; R65.20 Severe sepsis without septic shock; Z20.822 Contact with and (suspected) exposure to COVID-19; E80.6 Other disorders of bilirubin metabolism; E87.6 Hypokalemia; E78.5 Hyperlipidemia, unspecified; K42.9 Umbilical hernia without obstruction or gangrene; I11.0 Hypertensive heart disease with heart failure; D64.9 Anemia, unspecified; F17.210 Nicotine dependence, cigarettes, uncomplicated; E66.9 Obesity, unspecified; D69.59 Other secondary thrombocytopenia; T45.515A Adverse effect of anticoagulants, initial encounter; Z68.34 Body mass index [BMI] 34.0-34.9, adult; Z86.718 Personal history of other venous thrombosis and embolism; Z79.01 Long term (current) use of anticoagulants; Z95.810 Presence of automatic (implantable) cardiac defibrillator
CPT/HCPCS: 36415; 71275; 74177; 74329; 76705; 80048; 80053; 82140; 82248; 83605; 83690; 83735; 84484; 85025; 85055; 85380; 85520; 85610; 85730; 86022; 87040; 87426; 93005; 93970; 96361; 96365; 96366; 97110; 97116; 97162; 97166; 97530; 97535; 99285; A9270; C9803; G0378; J0295; J0330; J1100; J1644; J2405; J2704; J3480; J7030; J7120; Q9967